=== PATIENT | female | born 2000 | race Caucasian/White ===

== ENCOUNTER 2019-05-24 16:58 | Emergency (ER) | payer MEDICAID ==
--- NOTE | 2019-05-24 17:53 | ER Document Report ---
HPI - HPI Time Seen by Provider: 05/24/19 17:17 Pain Level: 3 Context: Patient is a 19-year-old female with a history of asthma, sinusitis, and pneumonia who presents the emergency department with a cough and sinus congestion. She has had her symptoms for the past week. She denies any fever, but states that she does not feel well. - CONSTITUTIONAL Constitutional: DENIES: Fever, Chills - EENT EENT: REPORTS: Nasal Drainage-Purulent, Congestion. DENIES: Ear Pain - NEURO Neurology: DENIES: Headache - CARDIOVASCULAR Cardiovascular: DENIES: Chest pain - RESPIRATORY Respiratory: REPORTS: Coughing. DENIES: Trouble Breathing - GASTROINTESTINAL Gastrointestinal: DENIES: Abdominal Pain, Nausea, Patient vomiting - MUSCULOSKELETAL Musculoskeletal: DENIES: Extremity pain, Back Pain - DERM Skin Color: Normal Skin Problems: None Past Medical History - General Information source: Patient - Social History Smoking Status: Never Smoker Family History: Reviewed & Not Pertinent Patient has suicidal ideation: No Patient has homicidal ideation: No Pulmonary Medical History: Reports: Hx Asthma, Hx Pneumonia Vertical Provider Document - CONSTITUTIONAL Agree With Documented VS: Yes Exam Limitations: No Limitations General Appearance: No Apparent Distress - INFECTION CONTROL TRAVEL OUTSIDE OF THE [place] IN LAST 30 DAYS: No - HEENT HEENT: Atraumatic, Normocephalic, PERRLA. negative: Conjuctival Injection, Pharyngeal Exudate, Pharyngeal Tenderness, Pharyngeal Erythema, Tympanic Membrane Red, Tympanic Membrane Bulging - NECK Neck: Normal Inspection. negative: Lymphadenopathy-Left, Lymphadenopathy-Right - RESPIRATORY Respiratory: Breath Sounds Normal, No Respiratory Distress - CARDIOVASCULAR Cardiovascular: Regular Rate, Regular Rhythm Pulses: Normal: Radial - MUSCULOSKELETAL/EXTREMETIES Musculoskeletal/Extremeties: FROM - NEURO Level of Consciousness: Awake, Alert, Appropriate Motor/Sensory: No Motor Deficit, No Sensory Deficit - DERM Integumentary: Warm, Dry, No Rash Course - Re-evaluation Re-evalutation: 05/24/19 Patient's x-ray is negative for any acute finding. Patient will be treated with Augmentin for sinusitis. I have a very low suspicion for any life-threatening etiology at this time. She will follow-up with her primary care provider in [place], as she is visiting here. Follow-up precautions were given. Verbal discharge instructions were given to the patient. They verbalized understanding. They are stable for discharge. - Vital Signs Vital signs: Temp Pulse Resp BP Pulse Ox 98.3 F 105 H 17 131/66 H 98 05/24/19 17:36 05/24/19 17:36 05/24/19 17:36 05/24/19 17:36 05/24/19 17:36 Discharge - Discharge Clinical Impression: Sinusitis Qualifiers: Sinusitis location: frontal Chronicity: acute Recurrence: recurrent Qualified Code(s): J01.11 - Acute recurrent frontal sinusitis Condition: Stable Disposition: HOME, SELF-CARE Additional Instructions: You are seen today in the emergency department for sinus congestion and a cough. Your chest x-ray is normal. You are being placed on Augmentin to help with your symptoms. You are also being placed on steroids to help with inflammation. Please follow-up with your primary care provider this week. Prescriptions: Amoxicillin/Potassium Clav [Augmentin 875-125 Tablet] 1 tab PO BID #20 tab Prednisone [Deltasone 20 mg Tablet] 3 tab PO DAILY 5 Days tablet
--- NOTE | 2019-05-24 18:15 | RADIOLOGY REPORT (SQ) ---
EXAM DESCRIPTION: CHEST 2 VIEWS COMPLETED DATE/TIME: 05/24/2019 5:57 pm REASON FOR STUDY: cough; congestion; COMPARISON: None. EXAM PARAMETERS: NUMBER OF VIEWS: two views TECHNIQUE: Digital Frontal and Lateral radiographic views of the chest acquired. RADIATION DOSE: NA LIMITATIONS: none FINDINGS: LUNGS AND PLEURA: No opacities, masses or pneumothorax. No pleural effusion. MEDIASTINUM AND HILAR STRUCTURES: No masses or contour abnormalities. HEART AND VASCULAR STRUCTURES: Heart normal size. No evidence for failure. BONES: No acute findings. HARDWARE: None in the chest. OTHER: No other significant finding. IMPRESSION: NO ACUTE RADIOGRAPHIC FINDING IN THE CHEST. TECHNICAL DOCUMENTATION: JOB ID: [id number] 2010 [employer]- All Rights Reserved Reading location - IP/workstation name: [email or web address]
[2019-05-24 19:17] VITALS: BP 130/64
== END 2019-05-24 19:25 | disposition home or self-care (01) ==
LOC: ER 16:58
DX: J01.11 Acute recurrent frontal sinusitis (principal); R05 Cough; R09.81 Nasal congestion; R09.89 Other specified symptoms and signs involving the circulatory and respiratory systems; J45.909 Unspecified asthma, uncomplicated
CPT/HCPCS: 71046; 99283

== ENCOUNTER 2019-07-21 17:32 | Emergency (ER) | payer MEDICAID ==
--- NOTE | 2019-07-21 17:51 | ER Document Report ---
ED Medical Screen (RME) - General Chief Complaint: Lower Abdominal Pain Stated Complaint: ABDOMINAL PAIN Time Seen by Provider: 07/21/19 17:49 Mode of Arrival: Ambulatory Information source: Patient Notes: 19-year-old female with history of IBS presents emergency department with complaints of lower abdominal pain low back pain since this morning. Reports she is vomited twice today. Reports last bowel movement was this morning. Patient is still nauseated. No complaints of fever. Unsure of . I have greeted and performed a rapid initial assessment of this patient. A comprehensive ED assessment and evaluation of the patient, analysis of test results and completion of the medical decision making process will be conducted by additional ED providers. TRAVEL OUTSIDE OF THE U.S. IN LAST 30 DAYS: No - Related Data Allergies/Adverse Reactions: Anesthetics - Amide Type Allergy (Verified 07/21/19 17:42) latex Allergy (Verified 07/21/19 17:42) peanut Allergy (Verified 07/21/19 17:42) Home Medications: benadryl, claritin, ibuprofen, tylenol Past Medical History - Social History Chew tobacco use (# tins/day): No Frequency of alcohol use: Social Drug Abuse: None Pulmonary Medical History: Reports: Hx Asthma, Hx Pneumonia GI Medical History: Reports: Hx Gastroesophageal Reflux Disease Psychiatric Medical History: Reports: Hx Depression Physical Exam - Vital signs Vitals: Temp Pulse Resp BP Pulse Ox 99.2 F 116 H 16 116/58 L 98 07/21/19 17:40 07/21/19 17:40 07/21/19 17:40 07/21/19 17:40 07/21/19 17:40 Course - Vital Signs Vital signs: Temp Pulse Resp BP Pulse Ox 99.2 F 116 H 16 116/58 L 98 07/21/19 17:42 07/21/19 17:40 07/21/19 17:40 07/21/19 17:40 07/21/19 17:40
[2019-07-21] MEDS ORDERED: ONDANSETRON 4 MG TAB.RAPDIS PO ONE (17:52)
[2019-07-21 18:41] LABS: ABSOLUTE BASOPHILS # (AUTO) 0.1 10^3/uL (0.0-0.2); ABSOLUTE LYMPHOCYTES (AUTO) 1.7 10^3/uL (0.5-4.7); ABSOLUTE MONOCYTES (AUTO) 2.8 10^3/uL (0.1-1.4); ABSOLUTE NEUT (AUTO) 15.2 10^3/uL (1.7-8.2); BASOPHILS % (AUTO) 0.3 % (0-2); EOSINOPHILS % (AUTO) 0.1 % (0-6); HEMOGLOBIN 12.9 g/dL (12.0-15.5); LYMPHOCYTES % (AUTO) 8.5 % (13-45); MEAN CORPUSCULAR HEMOGLOBIN 27.3 pg (27.0-33.4); MEAN CORPUSCULAR HGB CONC 33.2 g/dL (32.0-36.0); MEAN CORPUSCULAR VOLUME 82 fl (80-97); MONOCYTES % (AUTO) 14.1 % (3-13); PLATELET COUNT 424 10^3/uL (150-450); RED BLOOD COUNT 4.74 10^6/uL (3.72-5.28); RED CELL DISTRIBUTION WIDTH 14.8 % (11.5-14.0); TOTAL CELLS COUNTED % (AUTO) 100 %; WHITE BLOOD COUNT 19.7 10^3/uL (4.0-10.5)
[2019-07-21 18:46] LABS: AMORPHOUS SEDIMENT,URINE TRACE /HPF; APPEARANCE,URINE SLIGHTLY-CLOUDY; BILIRUBIN,URINE NEGATIVE (NEGATIVE); COLOR,URINE YELLOW; GLUCOSE, URINE NEGATIVE (NEGATIVE); KETONES,URINE NEGATIVE (NEGATIVE); LEUKOCYTE ESTERASE,URINE LARGE (NEGATIVE); NITRITE,URINE NEGATIVE (NEGATIVE); PROTEIN,URINE 100 mg/dL (NEGATIVE); URINE SPECIFIC GRAVITY 1.015
[2019-07-21 18:59] LABS: ALBUMIN 3.8 g/dL (3.5-5.0); ALKALINE PHOSPHATASE 88 U/L (38-126); ANION GAP 6 (5-19); ASPARTATE AMINO TRANSFERASE 15 U/L (14-36); BILIRUBIN,TOTAL 0.6 mg/dL (0.2-1.3); BLOOD UREA NITROGEN 6 mg/dL (7-20); CALCIUM 9.1 mg/dL (8.4-10.2); CARBON DIOXIDE 26 mmol/L (22-30); CHLORIDE 103 mmol/L (98-107); GLUCOSE 98 mg/dL (75-110); TOTAL PROTEIN 6.7 g/dL (6.3-8.2)
[2019-07-21] MEDS ORDERED: CEFTRIAXONE 1 GM/D5W RTU 1 GM/50 ML RTUPB IV ONE (19:56)
[2019-07-21] MEDS ORDERED: KETOROLAC TROMETHAMINE INJ/PF 30 MG/1 ML SDV IV ONE (19:59)
[2019-07-21] MEDS ORDERED: ONDANSETRON HCL INJ/PF 4 MG/2 ML SDV IV ONE (19:59)
[2019-07-21] MEDS: NORMAL SALINE 1000 ML 1,000 ML IV PRN ×2 (20:15→20:49)
--- NOTE | 2019-07-21 20:15 | ER Document Report ---
ED General - General Chief Complaint: Lower Abdominal Pain Stated Complaint: ABDOMINAL PAIN Time Seen by Provider: 07/21/19 17:49 Mode of Arrival: Ambulatory TRAVEL OUTSIDE OF THE U.S. IN LAST 30 DAYS: No - HPI Notes: Patient is a 19-year-old female who presents to the emergency department for evaluation of lower back pain, urinary frequency and urgency, vomiting. She states her back started hurting her yesterday. This morning she noticed dysuria, hematuria. She said 2 episodes of nonbloody, nonbilious emesis. She states her back pain is an aching, rates it a 4 out of 5. It seems to be on the right side more than the left. No [place] fevers, but she was hot and cold at home. - Related Data Allergies/Adverse Reactions: Anesthetics - Amide Type Allergy (Verified 07/21/19 17:42) latex Allergy (Verified 07/21/19 17:42) peanut Allergy (Verified 07/21/19 17:42) Home Medications: benadryl, claritin, ibuprofen, tylenol Past Medical History - General Information source: Patient - Social History Smoking Status: Former Smoker Chew tobacco use (# tins/day): No Frequency of alcohol use: Social Drug Abuse: None Family History: Reviewed & Not Pertinent Patient has suicidal ideation: No Patient has homicidal ideation: No Pulmonary Medical History: Reports: Hx Asthma, Hx Pneumonia GI Medical History: Reports: Hx Gastroesophageal Reflux Disease Psychiatric Medical History: Reports: Hx Depression Review of Systems - Review of Systems Constitutional: See HPI Gastrointestinal: See HPI Genitourinary: See HPI Musculoskeletal: See HPI -: Yes All other systems reviewed and negative Physical Exam - Vital signs Vitals: Temp Pulse Resp BP Pulse Ox 99.2 F 116 H 16 116/58 L 98 07/21/19 17:40 07/21/19 17:40 07/21/19 17:40 07/21/19 17:40 07/21/19 17:40 - Notes Notes: Vital signs reviewed, please refer to chart. Head is normocephalic, atraumatic. Pupils equal round, reactive to light. Neck is supple without meningismus. Heart is regular rate and rhythm. Lungs are clear to auscultation bilaterally. Abdomen is soft, diffusely tender without rebound or guarding, normoactive bowel sounds throughout. Examination of the spine yields no obvious deformity. No midline tenderness or step-off. She has paraspinal musculature tenderness throughout the entire lumbar spine, right greater than left. No CVA tenderness noted. Extremities without cyanosis, clubbing. Posterior calves are nontender. Peripheral pulses are equal. Skin is warm and dry. Patient is awake, alert, neurological exam is nonfocal. Course - Re-evaluation Re-evalutation: 07/21/19 20:15 Patient presents to the emergency department for evaluation. She had laboratory investigations as ordered. She does have a high heart rate, high white count. We talked at length. The patient states she has an immune disorder which causes her to have a frequently high white count. At any rate, I did order urine cultures and blood cultures. She is given a dose of Rocephin. She is given medication for nausea and pain. At this point I do believe that it is reasonable to treat her as an outpatient. Patient is amenable to this plan. She is stable at this time, we will continue to monitor. 07/21/19 20:57 Patient feeling markedly improved after medications. I will send her home with a prescription for ceftriaxone. She understands the importance of returning if her symptoms worsen. She will be sent home with a to go pack of Zofran. She is to return to the ER with worsening. - Vital Signs Vital signs: Temp Pulse Resp BP Pulse Ox 99.2 F 116 H 16 116/58 L 98 07/21/19 17:42 07/21/19 17:40 07/21/19 17:40 07/21/19 17:40 07/21/19 17:40 - Laboratory Result Diagrams: 07/21/19 18:21 07/21/19 18:21 Laboratory results interpreted by me: 07/21/19 07/21/19 07/21/19 18:21 18:21 18:21 WBC 19.7 H RDW 14.8 H Lymph % (Auto) 8.5 L Graham % (Auto) 14.1 H Absolute Neuts (auto) 15.2 H Absolute Monos (auto) 2.8 H Sodium 135.4 L BUN 6 L Urine Protein 100 H Urine Blood MODERATE H Urine Urobilinogen 4.0 H Ur Leukocyte Esterase LARGE H Discharge - Discharge Clinical Impression: Urinary tract infection Qualifiers: Urinary tract infection type: site unspecified Hematuria presence: without hematuria Qualified Code(s): N39.0 - Urinary tract infection, site not specified Nausea and vomiting Qualifiers: Vomiting type: unspecified Vomiting Intractability: non-intractable Qualified Code(s): R11.2 - Nausea with vomiting, unspecified Condition: Stable Disposition: HOME, SELF-CARE Instructions: Urinary Tract Infection ([facility]), Cephalexin ([facility]) Additional Instructions: Stay hydrated with small, frequent sips of fluids. Zofran as needed for nausea. Take all the antibiotic as prescribed, starting tomorrow morning. If you develop fevers, vomiting that worsens, your symptoms do not improve in the next 24 to 48 hours, or you develop any other new or concerning symptoms, please return immediately to the ER for further evaluation. Otherwise, follow-up with primary care this week.
[2019-07-21] MEDS ORDERED: ONDANSETRON ODT 4 MG TAB (6 TAB/ER DISP) PO PRN (20:58)
[2019-07-21 21:32] VITALS: BP 114/61
== END 2019-07-21 21:33 | disposition home or self-care (01) ==
LOC: ER 17:32
DX: N39.0 Urinary tract infection, site not specified (principal); R11.2 Nausea with vomiting, unspecified; M54.5 Low back pain; R10.817 Generalized abdominal tenderness; J45.909 Unspecified asthma, uncomplicated; Z79.899 Other long term (current) drug therapy; Z79.1 Long term (current) use of non-steroidal anti-inflammatories (NSAID); Z87.891 Personal history of nicotine dependence; Z88.4 Allergy status to anesthetic agent; Z91.041 Radiographic dye allergy status; Z91.010 Allergy to peanuts
CPT/HCPCS: 99284; 96361; 96375; 96365; 36415; 87040; 84703; 85025; 80053; 81001; S0119; J1885; J2405; J7030; J0696

== ENCOUNTER 2019-08-14 16:53 | Emergency (ER) | payer MEDICAID ==
--- NOTE | 2019-08-14 17:14 | ER Document Report ---
ED Medical Screen (RME) - General Chief Complaint: Palpitations Stated Complaint: PALPITATIONS Time Seen by Provider: 08/14/19 17:08 Mode of Arrival: Ambulatory Information source: Patient Notes: 19-year-old female with history of auto immune deficiency disorder and palpitations presents to the emergency department with complaints of heart palpitations and chest pain with the palpitations. She reports her palpitations started when she was just laying there prior to arrival. Denies other symptoms such as nausea vomiting fever diarrhea. Denies drinking energy drinks. Denies cold medications. Denies smoking drinking drugs. Reports father history with cardiac disease. Patient is visiting from [place]. She reports she has had pneumonia 23 times. Patient denies symptoms at this time. I have greeted and performed a rapid initial assessment of this patient. A comprehensive ED assessment and evaluation of the patient, analysis of test results and completion of the medical decision making process will be conducted by additional ED providers. TRAVEL OUTSIDE OF THE U.S[place] IN LAST 30 DAYS: No - Related Data Allergies/Adverse Reactions: Anesthetics - Amide Type Allergy (Verified 07/21/19 17:42) latex Allergy (Verified 07/21/19 17:42) peanut Allergy (Verified 07/21/19 17:42) Home Medications: Benadryl. Claritin Past Medical History - Social History Frequency of alcohol use: None Drug Abuse: None Pulmonary Medical History: Reports: Hx Asthma, Hx Pneumonia GI Medical History: Reports: Hx Gastroesophageal Reflux Disease Psychiatric Medical History: Reports: Hx Depression Physical Exam - Vital signs Vitals: Temp Pulse Resp BP Pulse Ox 97.8 F 99 18 119/71 98 08/14/19 17:02 08/14/19 17:02 08/14/19 17:02 08/14/19 17:02 08/14/19 17:02 Course - Vital Signs Vital signs: Temp Pulse Resp BP Pulse Ox 97.8 F 99 18 119/71 98 08/14/19 17:06 08/14/19 17:02 08/14/19 17:02 08/14/19 17:02 08/14/19 17:02
--- NOTE | 2019-08-14 17:49 | RADIOLOGY REPORT (SQ) ---
EXAM DESCRIPTION: CHEST SINGLE VIEW IMAGES COMPLETED DATE/TIME: 08/14/2019 5:36 pm REASON FOR STUDY: chest palpitations COMPARISON: 05/24/2019 EXAM PARAMETERS: NUMBER OF VIEWS: One view. TECHNIQUE: Single frontal radiographic view of the chest acquired. RADIATION DOSE: NA LIMITATIONS: None. FINDINGS: LUNGS AND PLEURA: No opacities, masses or pneumothorax. No pleural effusion. MEDIASTINUM AND HILAR STRUCTURES: No masses. Contour normal. HEART AND VASCULAR STRUCTURES: Heart normal in size. Normal vasculature. BONES: No acute findings. HARDWARE: None in the chest. OTHER: No other significant finding. IMPRESSION: NO ACUTE RADIOGRAPHIC FINDING IN THE CHEST. TECHNICAL DOCUMENTATION: JOB ID: [id number] 2010 [employer]- All Rights Reserved Reading location - IP/workstation name: [email or web address]
[2019-08-14 18:11] LABS: ABSOLUTE BASOPHILS # (AUTO) 0.1 10^3/uL (0.0-0.2); ABSOLUTE EOSINOPHILS # (AUTO) 0.8 10^3/uL (0.0-0.6); ABSOLUTE LYMPHOCYTES (AUTO) 2.7 10^3/uL (0.5-4.7); ABSOLUTE MONOCYTES (AUTO) 0.9 10^3/uL (0.1-1.4); ABSOLUTE NEUT (AUTO) 9.8 10^3/uL (1.7-8.2); BASOPHILS % (AUTO) 0.7 % (0-2); EOSINOPHILS % (AUTO) 5.7 % (0-6); HEMATOCRIT 39.7 % (36.0-47.0); LYMPHOCYTES % (AUTO) 18.8 % (13-45); MEAN CORPUSCULAR HEMOGLOBIN 26.8 pg (27.0-33.4); MEAN CORPUSCULAR HGB CONC 32.8 g/dL (32.0-36.0); MEAN CORPUSCULAR VOLUME 82 fl (80-97); MONOCYTES % (AUTO) 6.5 % (3-13); PLATELET COUNT 504 10^3/uL (150-450); RED BLOOD COUNT 4.86 10^6/uL (3.72-5.28); RED CELL DISTRIBUTION WIDTH 14.9 % (11.5-14.0); SEGMENTED NEUTROPHILS % (AUTO) 68.3 % (42-78); TOTAL CELLS COUNTED % (AUTO) 100 %; WHITE BLOOD COUNT 14.3 10^3/uL (4.0-10.5)
[2019-08-14 18:25] LABS: APPEARANCE,URINE SLIGHTLY-CLOUDY; BILIRUBIN,URINE NEGATIVE (NEGATIVE); COLOR,URINE YELLOW; GLUCOSE, URINE NEGATIVE (NEGATIVE); KETONES,URINE NEGATIVE (NEGATIVE); LEUKOCYTE ESTERASE,URINE NEGATIVE (NEGATIVE); NITRITE,URINE NEGATIVE (NEGATIVE); PROTEIN,URINE NEGATIVE (NEGATIVE); URINE SPECIFIC GRAVITY 1.025; UROBILINOGEN,URINE NEGATIVE mg/dL (<2.0)
[2019-08-14 18:31] LABS: URINE AMPHETAMINES SCREEN NEGATIVE; URINE BARBITURATES SCREEN NEGATIVE; URINE BENZODIAZEPINES SCREEN NEGATIVE; URINE COCAINE SCREEN NEGATIVE; URINE MARIJUANA (THC) SCREEN NEGATIVE; URINE METHADONE SCREEN NEGATIVE; URINE PHENCYCLIDINE SCREEN NEGATIVE
[2019-08-14 18:32] LABS: ALBUMIN 4.2 g/dL (3.5-5.0); ALKALINE PHOSPHATASE 79 U/L (38-126); ANION GAP 7 (5-19); ASPARTATE AMINO TRANSFERASE 17 U/L (14-36); BILIRUBIN,TOTAL 0.3 mg/dL (0.2-1.3); BLOOD UREA NITROGEN 10 mg/dL (7-20); CALCIUM 9.8 mg/dL (8.4-10.2); CARBON DIOXIDE 28 mmol/L (22-30); CHLORIDE 103 mmol/L (98-107); GLUCOSE 91 mg/dL (75-110); POTASSIUM 4.4 mmol/L (3.6-5.0); TOTAL PROTEIN 7.2 g/dL (6.3-8.2)
--- NOTE | 2019-08-14 18:49 | EKG REPORT ---
SEVERITY:- NORMAL ECG - SINUS RHYTHM : Confirmed by: Leslie Raphael MD 14-Aug-2019 18:48:29
[2019-08-14 21:45] VITALS: BP 119/68
--- NOTE | 2019-08-15 05:42 | ER Document Report ---
Entered by BARBARA PATEL SCRIBE 08/14/19 2100 Acting as scribe for:LIYA BLOCK IV, MD ED General - General Chief Complaint: Palpitations Stated Complaint: PALPITATIONS Time Seen by Provider: 08/14/19 17:08 Primary Care Provider: ELO ROMERO MD [HONORARY] - 08/18/19 Mode of Arrival: Ambulatory Information source: Patient Notes: This 19 year old female patient with a history of an autoimmune disorder presents to the ED today with complaints of palpitations and chest pain that started earlier this afternoon while at rest. Patient describes the chest pain as a "fluttery" sensation that lasted approximately x3 hours intermittently. She states that she has had palpitations once in the past only after drinking an energy drink or using her albuterol inhaler. She denies caffeine intake or use of albuterol today. She reports that she recently stopped taking antihistamines for her chronic sinusitis. Denies fever, chills or any recent travel. She states that she feels better at this time, denies any chest pain. TRAVEL OUTSIDE OF THE [place] IN LAST 30 DAYS: No - Related Data Allergies/Adverse Reactions: Anesthetics - Amide Type Allergy (Verified 07/21/19 17:42) latex Allergy (Verified 07/21/19 17:42) peanut Allergy (Verified 07/21/19 17:42) Home Medications: Benadryl. Claritin Past Medical History - General Information source: Patient - Social History Smoking Status: Never Smoker Cigarette use (# per day): No Chew tobacco use (# tins/day): No Smoking Education Provided: No Frequency of alcohol use: None Drug Abuse: None Family History: Reviewed & Not Pertinent, CAD Patient has suicidal ideation: No Patient has homicidal ideation: No Pulmonary Medical History: Reports: Hx Asthma, Hx Pneumonia GI Medical History: Reports: Hx Gastroesophageal Reflux Disease Psychiatric Medical History: Reports: Hx Depression Review of Systems - Review of Systems Constitutional: See HPI. denies: Chills, Fever EENT: No symptoms reported Cardiovascular: See HPI, Chest pain, Palpitations Respiratory: No symptoms reported Gastrointestinal: No symptoms reported Genitourinary: No symptoms reported Female Genitourinary: No symptoms reported Musculoskeletal: No symptoms reported Skin: No symptoms reported Hematologic/Lymphatic: No symptoms reported Neurological/Psychological: No symptoms reported -: Yes All other systems reviewed and negative Physical Exam - Vital signs Vitals: Temp Pulse Resp BP Pulse Ox 97.8 F 99 18 119/71 98 08/14/19 17:02 08/14/19 17:02 08/14/19 17:02 08/14/19 17:02 08/14/19 17:02 Interpretation: Normal - General General appearance: Appears well, Alert In distress: None - HEENT Head: Normocephalic, Atraumatic Eyes: Normal Pupils: PERRL - Respiratory Respiratory status: No respiratory distress Chest status: Nontender Breath sounds: Normal Chest palpation: Normal - Cardiovascular Rhythm: Regular Heart sounds: Normal auscultation Murmur: No Friction rub: No Gallop: None auscultated - Abdominal Inspection: Normal Distension: No distension Bowel sounds: Normal Tenderness: Nontender - Abdomen soft Organomegaly: No organomegaly - Back Back: Normal, Nontender - Extremities General upper extremity: Normal inspection General lower extremity: Normal inspection - Neurological Neuro grossly intact: Yes Orientation: AAOx4 - Psychological Associated symptoms: Normal affect, Normal mood - Skin Skin Temperature: Warm Skin Moisture: Dry Skin Color: Normal Course - Re-evaluation Re-evalutation: 08/14/19 21:29 Results of ED MSE discussed with patient. Patient remains calm and still affirms that she is not having any chest pain or any other difficulty at this time. 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 All questions were answered prior to discharge. Emergency signs and symptoms, reasons to return to the emergency department discussed with patient. - Vital Signs Vital signs: Temp Pulse Resp BP Pulse Ox 97.8 F 99 18 119/71 98 08/14/19 17:06 08/14/19 17:02 08/14/19 17:02 08/14/19 17:02 08/14/19 17:02 - Laboratory Result Diagrams: 08/14/19 17:58 08/14/19 17:58 Laboratory results interpreted by me: 08/14/19 08/14/19 17:58 17:58 WBC 14.3 H MCH 26.8 L RDW 14.9 H Plt Count 504 H Absolute Neuts (auto) 9.8 H Absolute Eos (auto) 0.8 H Urine Blood SMALL H - EKG Interpretation by Me Additional EKG results interpreted by me: 08/14/19 21:31 EKG obtained on 08/14/2019 at 1658 hrs. was interpreted by this MD. Findings: Normal sinus rhythm, rate 95, normal axis, P waves preceding QRS complexes, QRS complexes appear narrow, there are no obvious patterns of ST segment elevation or depression seen to suggest acute myocardial ischemia or infarction. Impr ession: Normal sinus rhythm with nonspecific ST segments. Discharge - Discharge Clinical Impression: Palpitations Condition: Good Disposition: HOME, SELF-CARE Instructions: Palpitations (Irregular or Rapid Heartrate) ([facility]) Additional Instructions: Return to the Emergency Department without delay if any worse. HOME CARE INSTRUCTIONS & INFORMATION: Thank you for choosing us for your medical needs. We hope you're satisfied with the care you received. After you leave, you must properly care for your problem and, at the same time, observe its progress. Any condition can change. Some illnesses can change rapidly over hours or days. If your condition worsens, return to the Emergency Department or see your physician promptly. ABOUT YOUR X-RAYS AND EKG'S: If you had an EKG or X-rays taken, they have been read by the Emergency Physician. The X-rays and EKG's will also be read by a Radiologist or [employer] within 24 hours. If discrepancies are noted, you will be notified by telephone. Please be certain the ED has a correct telephone number & address where you can be reached. Also, realize that some fractures or abnormalities do not show up on initial X-rays. If your symptoms continue, see your physician. ABOUT YOUR LABORATORY TEST: If you had laboratory tests, the results have been reviewed by the Emergency Physician. Some test results (for example cultures) may not be available for several days. You will be contacted if any test result shows you need additional treatment. Please be certain the ED has a correct telephone number and address where you can be reached. ABOUT YOUR MEDICATIONS: You will receive instructions on how to take your medicine on the prescription label you receive. Additional information may be provided by the Pharmacy. If you have questions afterwards, call the ED for clarification or further instructions. Some prescribed medications may cause drowsiness. Do not perform tasks such as driving a car or operating machinery without consulting your Pharmacist. If you feel you need a refill of pain medication, your condition will need re-evaluation. Please do not call for a refill of any medication. ABOUT YOUR SIGNATURE: Signature of this document acknowledges to followin. Understanding that you received emergency treatment and that you may be r eleased before al medical problems are known or treated. Please be certain the ED has a correct phone number & address where you can be reached. 2. Acknowledgement that you will arrange for follow-up care as recommended. 3. Authorization for the Emergency Physician to provide information to your follow-up Physician in order to maximize your care. AT ANY TIME, IF YOUR SYMPTOMS CHANGE SIGNIFICANTLY OR WORSEN OR YOU DEVELOP NEW SYMPTOMS, RETURN TO THE EMERGENCY DEPARTMENT IMMEDIATELY FOR RE-EVALUATION. OUR GOAL IS TO PROVIDE EXCELLENT MEDICAL CARE! WE HOPE THAT WE HAVE MET YOUR EXPECTATIONS DURING YOUR EMERGENCY DEPARTMENT VISIT AND THAT YOU FEEL YOU HAVE RECEIVED EXCELLENT CARE! Referrals: ELO ROMERO MD [HONORARY] - 08/18/19 I personally performed the services described in the documentation, reviewed and edited the documentation which was dictated to the scribe in my presence, and it accurately records my words and actions.
== END 2019-08-14 21:45 | disposition home or self-care (01) ==
LOC: ER 16:53
DX: R00.2 Palpitations (principal); R07.9 Chest pain, unspecified; Z79.51 Long term (current) use of inhaled steroids; Z79.899 Other long term (current) drug therapy; Z88.8 Allergy status to other drugs, medicaments and biological substances; J45.909 Unspecified asthma, uncomplicated
CPT/HCPCS: 36415; 71045; 80053; 80307; 81001; 81025; 85025; 93005; 93010; 99285

== ENCOUNTER 2019-09-23 11:02 | Emergency (ER) | payer MEDICAID ==
[2019-09-23 13:06] LABS: ABSOLUTE EOSINOPHILS # (AUTO) 0.7 10^3/uL (0.0-0.6); ABSOLUTE LYMPHOCYTES (AUTO) 2.1 10^3/uL (0.5-4.7); ABSOLUTE MONOCYTES (AUTO) 0.9 10^3/uL (0.1-1.4); ABSOLUTE NEUT (AUTO) 11.1 10^3/uL (1.7-8.2); BASOPHILS % (AUTO) 0.2 % (0-2); EOSINOPHILS % (AUTO) 4.7 % (0-6); HEMATOCRIT 39.8 % (36.0-47.0); HEMOGLOBIN 13.1 g/dL (12.0-15.5); LYMPHOCYTES % (AUTO) 13.9 % (13-45); MEAN CORPUSCULAR HEMOGLOBIN 26.7 pg (27.0-33.4); MEAN CORPUSCULAR HGB CONC 32.9 g/dL (32.0-36.0); MEAN CORPUSCULAR VOLUME 81 fl (80-97); MONOCYTES % (AUTO) 6.4 % (3-13); PLATELET COUNT 462 10^3/uL (150-450); RED BLOOD COUNT 4.92 10^6/uL (3.72-5.28); RED CELL DISTRIBUTION WIDTH 15.3 % (11.5-14.0); SEGMENTED NEUTROPHILS % (AUTO) 74.8 % (42-78); TOTAL CELLS COUNTED % (AUTO) 100 %; WHITE BLOOD COUNT 14.9 10^3/uL (4.0-10.5)
[2019-09-23 13:23] LABS: ALKALINE PHOSPHATASE 81 U/L (38-126); ASPARTATE AMINO TRANSFERASE 20 U/L (14-36); BILIRUBIN,TOTAL 0.2 mg/dL (0.2-1.3); BLOOD UREA NITROGEN 10 mg/dL (7-20); CALCIUM 9.4 mg/dL (8.4-10.2); CHLORIDE 104 mmol/L (98-107); GLUCOSE 90 mg/dL (75-110); POTASSIUM 4.9 mmol/L (3.6-5.0)
[2019-09-23 13:28] LABS: ANION GAP 5 (5-19); CARBON DIOXIDE 28 mmol/L (22-30)
[2019-09-23 13:37] LABS: APPEARANCE,URINE CLEAR; BILIRUBIN,URINE NEGATIVE (NEGATIVE); COLOR,URINE YELLOW; GLUCOSE, URINE NEGATIVE (NEGATIVE); KETONES,URINE NEGATIVE (NEGATIVE); PROTEIN,URINE NEGATIVE (NEGATIVE); URINE SPECIFIC GRAVITY 1.019; UROBILINOGEN,URINE NEGATIVE mg/dL (<2.0)
--- NOTE | 2019-09-23 14:02 | RADIOLOGY REPORT (SQ) ---
EXAM DESCRIPTION: CT ABD/PELVIS NO ORAL OR IV IMAGES COMPLETED DATE/TIME: 09/23/2019 1:50 pm REASON FOR STUDY: rlq pain COMPARISON: None. TECHNIQUE: CT scan of the abdomen and pelvis performed without intravenous or oral contrast. Images reviewed with lung, soft tissue, and bone windows. Reconstructed coronal and sagittal MPR images revi ewed. All images stored on PACS. All CT scanners at this facility use dose modulation, iterative reconstruction, and/or weight based d osing when appropriate to reduce radiation dose to as low as reasonably achievable (ALARA). [facility]: Dose Right [facility]: CareDose [facility]: Dose Right [facility]: Teradose 4D [facility]: SocialGuide RADIATION DOSE: mGy. LIMITATIONS: None. FINDINGS: LOWER CHEST: No significant findings. No nodules or infiltrates. NON-CONTRASTED LIVER, SPLEEN, ADRENALS: Evaluation limited by lack of IV contrast. No identified sign ificant masses. PANCREAS: No masses. No peripancreatic inflammatory changes. GALLBLADDER: No identified stones by CT criteria. No inflammatory changes to suggest cholecystitis. RIGHT KIDNEY AND URETER: No solid masses. No significant calcification. No hydronephrosis or hydroure ter. LEFT KIDNEY AND URETER: Several punctate nonobstructing tiny stones. AORTA AND RETROPERITONEUM: No aneurysm. No retroperitoneal masses or adenopathy. BOWEL AND PERITONEAL CAVITY: No obvious masses or inflammatory changes. No free fluid. APPENDIX: Normal. PELVIS, BLADDER, AND ABDOMINAL WALL:No abnormal masses. No free fluid. Bladder normal. BONES: No significant findings. OTHER: No other significant finding. IMPRESSION: 1. No acute findings. 2. Nonobstructive left nephrolithiasis. TECHNICAL DOCUMENTATION: JOB ID: [id number] Quality ID # [id number]: Final reports with documentation of one or more dose reduction techniques (e.g., Au tomated exposure control, adjustment of the mA and/or kV according to patient size, use of iterative reconstruction technique) 2010 [employer]- All Rights Reserved Reading location - IP/workstation name: [employer] [email or web address]
[2019-09-23] MEDS ORDERED: CEFTRIAXONE INJ 250 MG VIAL IM ONE (14:26)
--- NOTE | 2019-09-23 14:26 | ER Document Report ---
ED General - General Chief Complaint: Nausea/Vomiting Stated Complaint: VOMITING Time Seen by Provider: 09/23/19 11:50 Mode of Arrival: Ambulatory Information source: Patient TRAVEL OUTSIDE OF THE [place] IN LAST 30 DAYS: No - HPI Notes: Patient presents with right lower quadrant and right flank pain. She states this started yesterday. She has had some nausea and vomiting as well. She states the pain is been relatively constant. Is worse with movement and better with rest. It does radiate from the right flank into the right lower quadrant. It is been sharp and crampy in nature. Moderate in intensity. No vaginal discharge or bleeding. She has had some dysuria. She denies being . - Related Data Allergies/Adverse Reactions: Anesthetics - Amide Type Allergy (Verified 07/21/19 17:42) latex Allergy (Verified 07/21/19 17:42) peanut Allergy (Verified 07/21/19 17:42) Home Medications: claritin, albuterol, vitamins, atrovent, dulera Past Medical History - General Information source: Patient - Social History Smoking Status: Never Smoker Chew tobacco use (# tins/day): No Frequency of alcohol use: None Drug Abuse: None Family History: Reviewed & Not Pertinent, CAD Pulmonary Medical History: Reports: Hx Asthma, Hx Pneumonia GI Medical History: Reports: Hx Gastroesophageal Reflux Disease Psychiatric Medical History: Reports: Hx Depression Review of Systems - Review of Systems Constitutional: Malaise. denies: Chills, Fever Respiratory: denies: Cough, Short of breath Gastrointestinal: Abdominal pain, Vomiting. denies: Diarrhea -: Yes All other systems reviewed and negative Physical Exam - Vital signs Vitals: Temp Pulse Resp BP Pulse Ox 98.2 F 74 16 131/95 H 99 09/23/19 12:12 09/23/19 12:12 09/23/19 12:12 09/23/19 12:12 09/23/19 12:12 Interpretation: Normal - General General appearance: Appears well, Alert - HEENT Head: Normocephalic, Atraumatic Eyes: Normal Pupils: PERRL - Respiratory Respiratory status: No respiratory distress Chest status: Nontender Breath sounds: Normal Chest palpation: Normal - Cardiovascular Rhythm: Regular Heart sounds: Normal auscultation Murmur: No - Abdominal Inspection: Normal Distension: No distension Bowel sounds: Normal Tenderness: Tender - Patient has some mild tenderness palpation of the right upper and lower quadrants. No rebound or guarding. Organomegaly: No organomegaly - Back Back: Normal, Nontender - Extremities General upper extremity: Normal inspection, Nontender, Normal color, Normal ROM, Normal temperature General lower extremity: Normal inspection, Nontender, Normal color, Normal ROM, Normal temperature, Normal weight bearing. No: Trisha's sign - Neurological Neuro grossly intact: Yes Cognition: Normal Orientation: AAOx4 [place] Coma Scale Eye Opening: Spontaneous [place] Coma Scale Verbal: Oriented [place] Coma Scale Motor: Obeys Commands [place] Coma Scale Total: 15 Speech: Normal Motor strength normal: LUE, RUE, LLE, RLE Sensory: Normal - Psychological Associated symptoms: Normal affect, Normal mood - Skin Skin Temperature: Warm Skin Moisture: Dry Skin Color: Normal Course - Re-evaluation Re-evalutation: 09/23/19 14:22 Patient presents with right flank pain with an equivocal urine. She does have an elevated white blood cell count but no other acute findings on CT. She does not have a surgical exam. She does have stable vitals. I am going to treat the patient as a urinary tract infection at this time and have her follow-up with her primary care physician. Her clinical picture does not seem consistent with an STD and she states that she is not concerned about this. - Vital Signs Vital signs: Temp Pulse Resp BP Pulse Ox 98.2 F 74 16 131/95 H 99 09/23/19 12:12 09/23/19 12:12 09/23/19 12:12 09/23/19 12:12 09/23/19 12:12 - Laboratory Result Diagrams: 09/23/19 12:52 09/23/19 12:52 Laboratory results interpreted by me: 09/23/19 09/23/19 09/23/19 11:48 12:52 12:52 WBC 14.9 H MCH 26.7 L RDW 15.3 H Plt Count 462 H Absolute Neuts (auto) 11.1 H Absolute Eos (auto) 0.7 H Sodium 136.8 L Urine Blood SMALL H Leukocyte Esterase Rfl TRACE H - Diagnostic Test Radiology reviewed: Image reviewed, Reports reviewed Discharge - Discharge Clinical Impression: UTI (urinary tract infection) Qualifiers: Urinary tract infection type: site unspecified Hematuria presence: without hematuria Qualified Code(s): N39.0 - Urinary tract infection, site not specified Condition: Stable Disposition: HOME, SELF-CARE Instructions: Urinary Tract Infection ([facility]) Additional Instructions: Please follow-up with your primary care physician as soon as possible Prescriptions: Doxycycline Hyclate [Morgidox] 100 mg PO BID 10 Days #20 capsule Hydrocodone/Acetaminophen [[place] 5-325 mg Tablet] 1 tab PO Q6 PRN 3 Days #12 tablet PRN Reason: Forms: Return to Work Referrals: JESSICA HURTADO MD [ACTIVE STAFF] - Follow up in 3-5 days
[2019-09-23] MEDS ORDERED: CEFTRIAXONE INJ 250 MG VIAL IV ONE (14:30)
[2019-09-23] MEDS ORDERED: ONDANSETRON HCL INJ/PF 4 MG/2 ML SDV IV ONE (14:30)
[2019-09-23] MEDS ORDERED: KETOROLAC TROMETHAMINE INJ/PF 30 MG/1 ML SDV IV ONE (14:30)
[2019-09-23 15:44] VITALS: BP 105/67
== END 2019-09-23 15:55 | disposition home or self-care (01) ==
LOC: ER 11:02
DX: N39.0 Urinary tract infection, site not specified (principal); N20.0 Calculus of kidney; R10.31 Right lower quadrant pain; R10.9 Unspecified abdominal pain; R10.811 Right upper quadrant abdominal tenderness; R10.813 Right lower quadrant abdominal tenderness; R11.2 Nausea with vomiting, unspecified; R30.0 Dysuria; R53.81 Other malaise; J45.909 Unspecified asthma, uncomplicated; Z79.899 Other long term (current) drug therapy; Z79.51 Long term (current) use of inhaled steroids; Z88.4 Allergy status to anesthetic agent; Z91.040 Latex allergy status; Z91.010 Allergy to peanuts
CPT/HCPCS: 99284; 96375; 96365; 36415; 85025; 81025; 80053; 81001; 74176; J1885; J2405; J0696

== ENCOUNTER 2019-10-16 18:41 | Emergency (ER) | payer MEDICAID ==
--- NOTE | 2019-10-16 18:55 | ER Document Report ---
ED Medical Screen (RME) - General Chief Complaint: Vag Bleeding, +preg <12wks Stated Complaint: VAGINAL BLEEDING,ABDOMINAL PAIN Time Seen by Provider: 10/16/19 18:49 Mode of Arrival: Ambulatory Information source: Patient Notes: 19-year-old female presented to ED for complaint of vaginal bleeding started about an hour ago soaking a panty liner. She states she took a bunch of home tests and they were all positive. She states her last menstrual period was August 30. She states she has some cramping which are level 2 out of 5. She is 2 para 1. She does not smoke she was drinking alcohol before she started having positive home test. And she states she does not use any drugs. She is alert oriented respirations regular nonlabored speaking in full sentences walks with a even steady gait. I have greeted and performed a rapid initial assessment of this patient. A comprehensive ED assessment and evaluation of the patient, analysis of test results and completion of medical decision making process will be conducted by an additional ED providers. TRAVEL OUTSIDE OF THE [place] IN LAST 30 DAYS: No - Related Data Allergies/Adverse Reactions: Anesthetics - Amide Type Allergy (Verified 10/16/19 18:50) latex Allergy (Verified 10/16/19 18:50) peanut Allergy (Verified 10/16/19 18:50) Past Medical History Pulmonary Medical History: Reports: Hx Asthma, Hx Pneumonia GI Medical History: Reports: Hx Gastroesophageal Reflux Disease Psychiatric Medical History: Reports: Hx Depression Physical Exam - Vital signs Vitals: Temp Pulse Resp BP Pulse Ox 98.4 F 105 H 18 120/72 100 10/16/19 18:46 10/16/19 18:46 10/16/19 18:46 10/16/19 18:46 10/16/19 18:46 Course - Vital Signs Vital signs: Temp Pulse Resp BP Pulse Ox 98.4 F 105 H 18 120/72 100 10/16/19 18:46 10/16/19 18:46 10/16/19 18:46 10/16/19 18:46 10/16/19 18:46
[2019-10-16 19:35] LABS: ABSOLUTE BASOPHILS # (AUTO) 0.1 10^3/uL (0.0-0.2); ABSOLUTE EOSINOPHILS # (AUTO) 0.7 10^3/uL (0.0-0.6); ABSOLUTE LYMPHOCYTES (AUTO) 2.9 10^3/uL (0.5-4.7); ABSOLUTE MONOCYTES (AUTO) 0.9 10^3/uL (0.1-1.4); ABSOLUTE NEUT (AUTO) 12.1 10^3/uL (1.7-8.2); BASOPHILS % (AUTO) 0.4 % (0-2); EOSINOPHILS % (AUTO) 4.4 % (0-6); HEMATOCRIT 39.2 % (36.0-47.0); HEMOGLOBIN 12.7 g/dL (12.0-15.5); LYMPHOCYTES % (AUTO) 17.2 % (13-45); MEAN CORPUSCULAR HEMOGLOBIN 26.6 pg (27.0-33.4); MEAN CORPUSCULAR HGB CONC 32.4 g/dL (32.0-36.0); MEAN CORPUSCULAR VOLUME 82 fl (80-97); MONOCYTES % (AUTO) 5.6 % (3-13); PLATELET COUNT 538 10^3/uL (150-450); RED BLOOD COUNT 4.78 10^6/uL (3.72-5.28); RED CELL DISTRIBUTION WIDTH 15.8 % (11.5-14.0); SEGMENTED NEUTROPHILS % (AUTO) 72.4 % (42-78); TOTAL CELLS COUNTED % (AUTO) 100 %; WHITE BLOOD COUNT 16.8 10^3/uL (4.0-10.5)
[2019-10-16 19:47] LABS: APPEARANCE,URINE SLIGHTLY-CLOUDY; BILIRUBIN,URINE NEGATIVE (NEGATIVE); COLOR,URINE YELLOW; GLUCOSE, URINE NEGATIVE (NEGATIVE); KETONES,URINE NEGATIVE (NEGATIVE); LEUKOCYTE ESTERASE,URINE TRACE (NEGATIVE); NITRITE,URINE NEGATIVE (NEGATIVE); PROTEIN,URINE 30 mg/dL (NEGATIVE); URINE SPECIFIC GRAVITY 1.029
[2019-10-16 19:58] LABS: ALBUMIN 3.8 g/dL (3.5-5.0); ALKALINE PHOSPHATASE 74 U/L (38-126); ANION GAP 5 (5-19); ASPARTATE AMINO TRANSFERASE 18 U/L (14-36); BILIRUBIN,TOTAL 0.2 mg/dL (0.2-1.3); BLOOD UREA NITROGEN 6 mg/dL (7-20); CALCIUM 9.1 mg/dL (8.4-10.2); CARBON DIOXIDE 26 mmol/L (22-30); CHLORIDE 106 mmol/L (98-107); GLUCOSE 102 mg/dL (75-110); POTASSIUM 4.5 mmol/L (3.6-5.0); TOTAL PROTEIN 6.6 g/dL (6.3-8.2)
--- NOTE | 2019-10-16 20:48 | ER Document Report ---
ED GI/ - General Chief Complaint: Vag Bleeding, +preg <12wks Stated Complaint: VAGINAL BLEEDING,ABDOMINAL PAIN Time Seen by Provider: 10/16/19 18:49 Mode of Arrival: Ambulatory Notes: CHIEF COMPLAINT: Vaginal bleeding and HPI: 19-year-old female presenting for evaluation of vaginal bleeding and . States she had an episode of bleeding tonight that was heavier than a menstrual cycle but which she states has stopped now. States she had some cramping at that time no cramping currently. This is the patient's second . ROS: See HPI - all other systems were reviewed and are otherwise negative Constitutional: no fever or recent illness Eyes: no drainage, no blurred vision ENT: no runny nose, no sore throat Cardiovascular: no chest pain Resp: no SOB, no cough GI: no vomiting, no diarrhea : no dysuria, no vaginal discharge, positive vaginal bleeding Integumentary: no rash Allergy: no hives Musculoskeletal: no extremity pain or swelling Neurological: no numbness/tingling, no weakness MEDICATIONS: I agree with the patient medications as charted by the RN. ALLERGIES: I agree with the allergies as charted by the RN. PAST MEDICAL HISTORY/PAST SURGICAL HISTORY: Reviewed and agree as charted by RN. SOCIAL HISTORY: Reviewed and agree as charted by RN. FAMILY HISTORY: No significant familial comorbid conditions directly related to patient complaint EXAM: Reviewed vital signs as charted by RN. CONSTITUTIONAL: Alert and oriented and responds appropriately to questions. Well-appearing; well-nourished HEAD: Normocephalic; atraumatic EYES: Conjunctivae clear, sclerae non-icteric ENT: normal nose; no rhinorrhea; moist mucous membranes; pharynx without lesions noted NECK: Supple without meningismus CARD: Capillary refill less than 3 seconds; symmetric distal pulses RESP: Normal chest excursion without splinting or tachypnea ABD/GI: Obese, normal bowel sounds; non-distended; soft, non-tender, no rebound, no guarding; no palpable organomegaly or masses : Female nurse seo specialist present. External genitalia normal. No skin lesions noted. Pelvic Exam: No active bleeding. No purulent discharge. Cervix appears normal. No CMT. cervical loss is closed. No lesions or masses. Uterus normal size and non tender. Right/Left adnexa normal size and non tender. BACK: The back appears normal and is non-tender to palpation, there is no CVA tenderness EXT: Normal ROM in all joints; non-tender to palpation; no cyanosis, no effusions, no edema SKIN: Normal color for age and race; warm; dry; good turgor; no acute lesions noted NEURO: Moves all extremities equally; Motor and sensory function intact PSYCH: The patient's mood and manner are appropriate. Grooming and personal hygiene are appropriate. MDM: 19-year-old female presenting for vaginal bleeding tonight in a setting of . She does have a positive beta hCG just slightly greater than 1300. There was absolutely no blood old or new in the vaginal vault on her exam. She is early on in does not have any complaints of pain unilaterally that would suggest an ectopic at this time. No indication at this time for ultrasound imaging as it would be unlikely given her beta-hCG level to visualize anything in the uterus. This was discussed at length with the patient. Will have patient follow-up with [facility] for repeat beta hCG in 3 to 4 days. Bleeding and ectopic precautions discussed TRAVEL OUTSIDE OF THE [place] IN LAST 30 DAYS: No - Related Data Allergies/Adverse Reactions: Anesthetics - Amide Type Allergy (Verified 10/16/19 18:50) latex Allergy (Verified 10/16/19 18:50) peanut Allergy (Verified 10/16/19 18:50) Home Medications: PNV, proair inhaler Past Medical History - General Information source: Patient Last Menstrual Period: 08/31/2019 - Social History Smoking Status: Former Smoker Chew tobacco use (# tins/day): No Frequency of alcohol use: None Drug Abuse: None Family History: Reviewed & Not Pertinent, CAD Patient has homicidal ideation: No Pulmonary Medical History: Reports: Hx Asthma, Hx Pneumonia GI Medical History: Reports: Hx Gastroesophageal Reflux Disease Psychiatric Medical History: Reports: Hx Depression Physical Exam - Vital signs Vitals: Temp Pulse Resp BP Pulse Ox 98.4 F 105 H 18 120/72 100 10/16/19 18:46 10/16/19 18:46 10/16/19 18:46 10/16/19 18:46 10/16/19 18:46 Course - Re-evaluation Re-evalutation: 10/16/19 21:01 Patient is noted to have vaginitis will start on Flagyl refer to [facility] for further evaluation with return instructions - Vital Signs Vital signs: Temp Pulse Resp BP Pulse Ox 98.4 F 105 H 18 120/72 100 10/16/19 18:46 10/16/19 18:46 10/16/19 18:46 10/16/19 18:46 10/16/19 18:46 - Laboratory Result Diagrams: 10/16/19 19:03 10/16/19 19:03 Laboratory results interpreted by me: 10/16/19 10/16/19 10/16/19 19:03 19:03 19:08 WBC 16.8 H MCH 26.6 L RDW 15.8 H Plt Count 538 H Absolute Neuts (auto) 12.1 H Absolute Eos (auto) 0.7 H BUN 6 L Beta HCG, Quant 1397.00 H Urine Protein 30 H Urine Blood SMALL H Urine Urobilinogen 2.0 H Ur Leukocyte Esterase TRACE H Discharge - Discharge Clinical Impression: Threatened miscarriage in early Vaginitis Qualifiers: Chronicity: acute Qualified Code(s): N76.0 - Acute vaginitis Qualifiers: Weeks of gestation: unspecified Qualified Code(s): Z34.90 - Encounter for supervision of normal , unspecified, unspecified trimester Condition: Stable Disposition: HOME, SELF-CARE Additional Instructions: 1. follow up with OB for repeat Beta-HCG blood test in 3-5 days 2. follow up with OB for further evaluation and treatment, call for appt. 3. return to the ED for any worsening/onset of abdominal pain, vomiting or vaginal bleeding where you are saturating > 1 pad per hour or if you develop unilateral pelvic pain Prescriptions: Metronidazole [Flagyl 500 mg Tablet] 500 mg PO BID #14 tablet Referrals: BERONICA MCDONALD MD [ACTIVE PROVISIONAL STAFF] - Follow up as needed
[2019-10-16 20:58] LABS: BACTERIA (WET MOUNT) 3+ BACTERIA SEEN; EPITHELIALS (WET MOUNT) 4+ EPITHELIALS SEEN; RBCS (WET MOUNT) 1+ RBCS SEEN; T.VAGINALIS (WET MOUNT) NO TRICHOMONAS SEEN; WBCS (WET MOUNT) 3+ WBCS SEEN; YEAST (WET MOUNT) NO YEAST SEEN
[2019-10-16] MEDS ORDERED: METRONIDAZOLE 500 MG TABLET PO ONE (21:01)
[2019-10-16 21:27] VITALS: BP 111/65
[2019-10-16 22:27] LABS: CHLAM PCR NOT DETECTED (NOT DETECT)
== END 2019-10-16 21:20 | disposition home or self-care (01) ==
LOC: ER 18:41
DX: O20.0 Threatened abortion (principal); O23.599 Infection of other part of genital tract in pregnancy, unspecified trimester; O26.891 Other specified pregnancy related conditions, first trimester; R10.9 Unspecified abdominal pain; Z3A.00 Weeks of gestation of pregnancy not specified; E66.9 Obesity, unspecified; Z88.8 Allergy status to other drugs, medicaments and biological substances; Z79.899 Other long term (current) drug therapy
CPT/HCPCS: 36415; 80053; 81001; 84702; 85025; 86900; 86901; 87210; 87491; 87591; 99284

== ENCOUNTER 2019-12-13 03:33 | Emergency (ER) | payer SELFPAY ==
[2019-12-13 04:16] LABS: APPEARANCE,URINE SLIGHTLY-CLOUDY; BILIRUBIN,URINE NEGATIVE (NEGATIVE); COLOR,URINE YELLOW; GLUCOSE, URINE NEGATIVE (NEGATIVE); KETONES,URINE NEGATIVE (NEGATIVE); LEUKOCYTE ESTERASE,URINE TRACE (NEGATIVE); NITRITE,URINE NEGATIVE (NEGATIVE); PROTEIN,URINE NEGATIVE (NEGATIVE); URINE SPECIFIC GRAVITY 1.024; UROBILINOGEN,URINE NEGATIVE mg/dL (<2.0)
[2019-12-13] MEDS ORDERED: METOCLOPRAMIDE HCL 10 MG TABLET PO ONE (05:17)
[2019-12-13] MEDS ORDERED: ACETAMINOPHEN 325 MG TABLET PO ONE (05:17)
--- NOTE | 2019-12-13 05:17 | ER Document Report ---
ED Medical Screen (RME) - General Chief Complaint: OB Problem (<20wks) Stated Complaint: 11 WKS PREG, ABDOMINAL PAIN, DISCHARGE Time Seen by Provider: 12/13/19 05:15 Notes: 19-year-old female reported to be 11 weeks gestation chief complaint of mid to lower abdominal pain that started this morning. She reports intermittent nausea, denies vomiting, denies dysuria, vaginal discharge, fever. She states she has started to have vaginal spotting this evening as well. TRAVEL OUTSIDE OF THE [place] IN LAST 30 DAYS: No - Related Data Allergies/Adverse Reactions: Anesthetics - Amide Type Allergy (Verified 11/05/19 20:34) latex Allergy (Verified 11/05/19 20:34) peanut Allergy (Verified 11/05/19 20:34) Past Medical History - Social History Chew tobacco use (# tins/day): No Frequency of alcohol use: None Drug Abuse: None Pulmonary Medical History: Reports: Hx Asthma, Hx Pneumonia GI Medical History: Reports: Hx Gastroesophageal Reflux Disease, Hx Endoscopy Psychiatric Medical History: Reports: Hx Depression Past Surgical History: Reports: Hx Adenoidectomy, Hx Myringotomy - None, Hx Nose Surgery - Sinus surgery - Immunizations Immunizations up to date: No Hx Diphtheria, Pertussis, Tetanus Vaccination: No Physical Exam - Vital signs Vitals: Temp 98.2 F 12/13/19 03:34 - Abdominal Tenderness: Tender - Generalized lower abdominal tenderness, nonspecific, no guarding Course - Vital Signs Vital signs: Temp Pulse Resp BP Pulse Ox 98.2 F 101 H 16 129/65 H 100 12/13/19 03:39 12/13/19 03:39 12/13/19 03:39 12/13/19 03:39 12/13/19 03:39 - Laboratory Laboratory results interpreted by me: 12/13/19 03:50 Urine Blood MODERATE H Ur Leukocyte Esterase TRACE H
[2019-12-13 05:41] LABS: ABSOLUTE BASOPHILS # (AUTO) 0.1 10^3/uL (0.0-0.2); ABSOLUTE EOSINOPHILS # (AUTO) 0.5 10^3/uL (0.0-0.6); ABSOLUTE LYMPHOCYTES (AUTO) 2.8 10^3/uL (0.5-4.7); ABSOLUTE MONOCYTES (AUTO) 1.2 10^3/uL (0.1-1.4); ABSOLUTE NEUT (AUTO) 11.7 10^3/uL (1.7-8.2); BASOPHILS % (AUTO) 0.5 % (0-2); EOSINOPHILS % (AUTO) 3.3 % (0-6); HEMATOCRIT 38.7 % (36.0-47.0); LYMPHOCYTES % (AUTO) 17.4 % (13-45); MEAN CORPUSCULAR HGB CONC 33.5 g/dL (32.0-36.0); MEAN CORPUSCULAR VOLUME 81 fl (80-97); MONOCYTES % (AUTO) 7.2 % (3-13); PLATELET COUNT 384 10^3/uL (150-450); RED CELL DISTRIBUTION WIDTH 14.9 % (11.5-14.0); SEGMENTED NEUTROPHILS % (AUTO) 71.6 % (42-78); TOTAL CELLS COUNTED % (AUTO) 100 %; WHITE BLOOD COUNT 16.3 10^3/uL (4.0-10.5)
--- NOTE | 2019-12-13 06:51 | RADIOLOGY REPORT (SQ) ---
Obstetric ultrasound: 12/13/2019 5:48 AM CDT HISTORY: 19-year-old female with lower abdominal pain, concern for vaginal bleeding. TECHNIQUE: Multiple grayscale and color Doppler images of the pelvis were obtained transabdominally. COMPARISON: None available for this . FINDINGS: A single intrauterine gestation is seen, which is variable in position. The uterus measures 14.0 x 6.2 x 11.0 cm. The right ovary is obscured by overlying bowel gas. The left ovary measures 3.0 x 1.8 x 3.0 cm. Arterial waveforms were obtained from the left ovary. The cervix measures at least 3.2 centers in length. The placenta is anterior in location, and free of internal os of the cervix. The estimated heart rate is approximately 153 bpm. The ESCOBAR is subjectively within normal limits. The following measurements were obtained: BPD: 2.3 cm, consistent with 13 weeks and 6 day(s). HC: 9.2 cm, consistent with 14 weeks and 1 day(s). AC: 7.2 cm, consistent with 13 weeks and 5 day(s). FL: 1.3 cm, consistent with 13 weeks and 5 day(s). The fetus measures at 13 weeks and 6 day(s) by AUA, consistent with an estimated due date of 06/13/20. IMPRESSION: A single, live intrauterine gestation is seen which is currently variable in position. The fetus measures at 13 weeks and 6 day(s) by AUA, consistent with an estimated due date of 06/13/20. This is different than the prior estimated due date of 06/06/2020. 2.Detailed anatomic assessment was not performed. Interval follow-up with an obstetric care provider is recommended.
--- NOTE | 2019-12-13 07:36 | ER Document Report ---
Entered by BARBARA PATEL SCRIBE 12/13/19 0646 Acting as scribe for:LARRY BLACKBURN MD ED GI/ - General Chief Complaint: OB Problem (<20wks) Stated Complaint: 11 WKS PREG, ABDOMINAL PAIN, DISCHARGE Time Seen by Provider: 12/13/19 05:15 Mode of Arrival: Ambulatory Information source: Patient Notes: This 19 year old female patient, , approximately x11 weeks presents to the ED today for evaluation of pink discharge/spotting that started yesterday evening. She reports bilateral lower quadrant pain and nausea without emesis. She states that she is taking OTC vitamins, but she has not established OB care yet. Denies fever or chills. TRAVEL OUTSIDE OF THE [place] IN LAST 30 DAYS: No - Related Data Allergies/Adverse Reactions: Anesthetics - Amide Type Allergy (Verified 11/05/19 20:34) latex Allergy (Verified 11/05/19 20:34) peanut Allergy (Verified 11/05/19 20:34) Past Medical History - General Information source: Patient - Social History Smoking Status: Never Smoker Cigarette use (# per day): No Chew tobacco use (# tins/day): No Smoking Education Provided: No Frequency of alcohol use: None Drug Abuse: None Lives with: Spouse/Significant other Family History: Reviewed & Not Pertinent, CAD Patient has suicidal ideation: No Patient has homicidal ideation: No Pulmonary Medical History: Reports: Hx Asthma, Hx Pneumonia GI Medical History: Reports: Hx Gastroesophageal Reflux Disease, Hx Endoscopy Skin Medical History: Reports Hx Eczema Psychiatric Medical History: Reports: Hx Anxiety, Hx Depression Past Surgical History: Reports: Hx Adenoidectomy, Hx Nose Surgery - Sinus surgery - Immunizations Immunizations up to date: No Hx Diphtheria, Pertussis, Tetanus Vaccination: No Review of Systems - Review of Systems Constitutional: See HPI. denies: Chills, Fever EENT: No symptoms reported Cardiovascular: No symptoms reported Respiratory: No symptoms reported Gastrointestinal: See HPI, Abdominal pain, Nausea. denies: Vomiting Genitourinary: No symptoms reported Female Genitourinary: See HPI, , Vaginal discharge, Vaginal bleeding Musculoskeletal: No symptoms reported Skin: No symptoms reported Hematologic/Lymphatic: No symptoms reported Neurological/Psychological: No symptoms reported -: Yes All other systems reviewed and negative Physical Exam - Vital signs Vitals: Temp 98.2 F 12/13/19 03:34 Interpretation: Normal - General General appearance: Appears well, Alert In distress: None - HEENT Head: Normocephalic, Atraumatic Eyes: Normal Extraocular movements intact: Yes Pupils: PERRL - Respiratory Respiratory status: No respiratory distress Chest status: Nontender Breath sounds: Normal Chest palpation: Normal - Cardiovascular Rhythm: Regular Heart sounds: Normal auscultation, S1 appreciated, S2 appreciated Murmur: No Friction rub: No Gallop: None auscultated - Abdominal Inspection: Obese Distension: No distension Bowel sounds: Normal Tenderness: Nontender - Abdomen soft. No: Guarding, Rebound Organomegaly: No organomegaly - Back Back: Normal, Nontender - Extremities General upper extremity: Normal inspection General lower extremity: Normal inspection. No: Edema - Neurological Neuro grossly intact: Yes Orientation: AAOx4 [place] Coma Scale Eye Opening: Spontaneous [place] Coma Scale Verbal: Oriented [place] Coma Scale Motor: Obeys Commands [place] Coma Scale Total: 15 - Psychological Associated symptoms: Normal affect, Normal mood - Skin Skin Temperature: Warm Skin Moisture: Dry Skin Color: Normal Course - Re-evaluation Re-evalutation: 12/13/19 07:24 Patient resting comfortably not showing any signs of distress at this time. 12/13/19 07:34 Chlamydia gonorrhea PCR on urine has been ordered. Patient will be discharged and not required to wait on the results of this test will give her a call once results are in. - Vital Signs Vital signs: Temp Pulse Resp BP Pulse Ox 98.2 F 101 H 16 129/65 H 100 12/13/19 03:39 12/13/19 03:39 12/13/19 03:39 12/13/19 03:39 12/13/19 03:39 12/13/19 07:25 Vital signs stable. Pulse 101. - Laboratory Result Diagrams: 12/13/19 05:25 Laboratory results interpreted by me: 12/13/19 12/13/19 12/13/19 03:50 05:25 05:25 WBC 16.3 H RDW 14.9 H Absolute Neuts (auto) 11.7 H Beta HCG, Quant 76423.00 H Urine Blood MODERATE H Ur Leukocyte Esterase TRACE H 12/13/19 07:25 Laboratory shows elevated white blood cell count of 16. Patient has chronic elevation of white blood cell counts and this is her usual range of sunroom white blood cells. Urinalysis shows trace leukocyte esterase moderate blood and the patient has a beta-hCG of 41,366. Patient is 13 weeks 6 days intrauterine not showing any signs of abnormality on ultrasound today. Most likely blood in urine is related to patient's as she is noted a pink-tinged discharge this morning. 12/13/19 07:28 Patient's blood type is be positive. Therefore patient does not require any RhoGam. - Diagnostic Test Radiology reviewed: Image reviewed, Reports reviewed Radiology results interpreted by me: 12/13/19 07:10 Obstetrics Ultrasound 12/13/19 05:15 IMPRESSION: A single, live intrauterine gestation is seen which is currently variable in position. The fetus measures at 13 weeks and 6 day(s) by AUA, consistent with an estimated due date of 06/13/20. This is different than the prior estimated due date of 06/06/2020. 2.Detailed anatomic assessment was not performed. Interval follow-up with an obstetric care provider is recommended. 12/13/19 07:26 Patient has a 13-week 16-day intrauterine live . Discharge - Discharge Clinical Impression: Second trimester , Threatened miscarriage Condition: Stable Disposition: HOME, SELF-CARE Instructions: Threatened Miscarriage ([facility]) Referrals: BERONICA MCDONALD MD [ACTIVE PROVISIONAL STAFF] - Follow up in 3-5 days I personally performed the services described in the documentation, reviewed and edited the documentation which was dictated to the scribe in my presence, and it accurately records my words and actions.
[2019-12-13 07:49] VITALS: BP 118/71
[2019-12-13 09:11] LABS: CHLAM PCR NOT DETECTED (NOT DETECT)
== END 2019-12-13 07:49 | disposition home or self-care (01) ==
LOC: ER 03:33
DX: O20.0 Threatened abortion (principal); O26.892 Other specified pregnancy related conditions, second trimester; R10.9 Unspecified abdominal pain; R11.0 Nausea; N89.8 Other specified noninflammatory disorders of vagina; O99.512 Diseases of the respiratory system complicating pregnancy, second trimester; J45.909 Unspecified asthma, uncomplicated; O99.112 Other diseases of the blood and blood-forming organs and certain disorders involving the immune mechanism complicating pregnancy, second trimester; D72.829 Elevated white blood cell count, unspecified; Z79.899 Other long term (current) drug therapy; Z3A.00 Weeks of gestation of pregnancy not specified; Z88.4 Allergy status to anesthetic agent; Z91.040 Latex allergy status; Z91.010 Allergy to peanuts
CPT/HCPCS: 36415; 76801; 81001; 84702; 85025; 86900; 86901; 87491; 87591; 93976; 99284

== ENCOUNTER 2020-01-09 20:17 | Emergency (ER) | payer MEDICAID ==
[2020-01-09] MEDS ORDERED: ACETAMINOPHEN 325 MG TABLET PO ONE (20:56)
--- NOTE | 2020-01-09 20:57 | ER Document Report ---
ED Medical Screen (RME) - General Stated Complaint: FALL,DIZZINESS,NO MOVEMENT/17 WEEKS Time Seen by Provider: 01/09/20 20:49 Notes: Patient is a G 2 P1 19-year-old female who presents the emergency department with no movement felt. Patient states that yesterday she tripped over some stairs forward and today she did not feel any movement. Patient states that her back hurts, but she states that she has chronic back pain. Denies any contraction feelings. Exam: Tender low back. I have greeted and performed a rapid initial assessment of this patient. A comprehensive ED assessment and evaluation of the patient, analysis of test results and completion of medical decision making process will be conducted by an additional ED providers. TRAVEL OUTSIDE OF THE [place] IN LAST 30 DAYS: No - Related Data Allergies/Adverse Reactions: Anesthetics - Amide Type - Select A [Anesthetics - Amide Type] Allergy (Verified 11/05/19 20:34) latex Allergy (Verified 11/05/19 20:34) peanut Allergy (Verified 11/05/19 20:34) Past Medical History Pulmonary Medical History: Reports: Hx Asthma, Hx Pneumonia GI Medical History: Reports: Hx Gastroesophageal Reflux Disease, Hx Endoscopy Skin Medical History: Reports Hx Eczema Psychiatric Medical History: Reports: Hx Anxiety, Hx Depression Past Surgical History: Reports: Hx Adenoidectomy, Hx Myringotomy - None, Hx Nose Surgery - Sinus surgery - Immunizations Immunizations up to date: No Hx Diphtheria, Pertussis, Tetanus Vaccination: No Physical Exam - Vital signs Vitals: Temp Pulse Resp BP Pulse Ox 98.4 F 103 H 20 119/64 98 01/09/20 20:24 01/09/20 20:24 01/09/20 20:24 01/09/20 20:24 01/09/20 20:24 Course - Vital Signs Vital signs: Temp Pulse Resp BP Pulse Ox 98.4 F 103 H 20 119/64 98 01/09/20 20:24 01/09/20 20:24 01/09/20 20:24 01/09/20 20:24 01/09/20 20:24
[2020-01-09 21:15] LABS: ABSOLUTE EOSINOPHILS # (AUTO) 0.6 10^3/uL (0.0-0.6); ABSOLUTE LYMPHOCYTES (AUTO) 2.6 10^3/uL (0.5-4.7); ABSOLUTE NEUT (AUTO) 10.3 10^3/uL (1.7-8.2); BASOPHILS % (AUTO) 0.2 % (0-2); EOSINOPHILS % (AUTO) 4.1 % (0-6); HEMATOCRIT 35.9 % (36.0-47.0); HEMOGLOBIN 12.1 g/dL (12.0-15.5); MEAN CORPUSCULAR HEMOGLOBIN 26.6 pg (27.0-33.4); MEAN CORPUSCULAR HGB CONC 33.9 g/dL (32.0-36.0); MEAN CORPUSCULAR VOLUME 79 fl (80-97); MONOCYTES % (AUTO) 7.1 % (3-13); PLATELET COUNT 372 10^3/uL (150-450); RED BLOOD COUNT 4.57 10^6/uL (3.72-5.28); RED CELL DISTRIBUTION WIDTH 14.8 % (11.5-14.0); SEGMENTED NEUTROPHILS % (AUTO) 70.6 % (42-78); TOTAL CELLS COUNTED % (AUTO) 100 %; WHITE BLOOD COUNT 14.6 10^3/uL (4.0-10.5)
--- NOTE | 2020-01-09 22:21 | ER Document Report ---
ED General - General Chief Complaint: Near Syncope Stated Complaint: FALL,DIZZINESS,NO MOVEMENT/17 WEEKS Time Seen by Provider: 01/09/20 20:49 TRAVEL OUTSIDE OF THE [place] IN LAST 30 DAYS: No - HPI Context: This is a 19-year-old female, , approximately 17 weeks who presents to the emergency department concerned about lack of movement today. Patient states that she was walking up a set of stairs and managed to trip on them and landed on her abdomen. Patient states she has not felt any movement since the accident. Patient states that she also has some low back pain but this is chronic. Patient denies any taylor of fluids, vaginal bleeding or sensation of contraction. Patient is B+ on review of prior medical records. Patient states her overall pain is a 2 out of 5 and states that the pain is worse with movement. Patient does not know of any alleviating symptoms of her discomfort. Patient states that sometimes when she stands up she feels dizzy. Patient states she mainly came in today to have her baby checked to "make sure everything was okay." Patient denies fever, chills, shortness of breath, chest pain, nausea, vomiting, loss of sense of taste or loss of sense of smell, history of Covid infection, known exposure to Covid positive patients or persons under investigation for COVID-19. Associated symptoms: Other - See HPI Exacerbated by: Other - See HPI Relieved by: Other - See HPI - Related Data Allergies/Adverse Reactions: Anesthetics - Amide Type - Select A [Anesthetics - Amide Type] Allergy (Verified 11/05/19 20:34) latex Allergy (Verified 11/05/19 20:34) peanut Allergy (Verified 11/05/19 20:34) Past Medical History - General Information source: Patient - Social History Smoking Status: Never Smoker Chew tobacco use (# tins/day): No Frequency of alcohol use: None Drug Abuse: None Family History: Reviewed & Not Pertinent, CAD Pulmonary Medical History: Reports: Hx Asthma, Hx Pneumonia GI Medical History: Reports: Hx Gastroesophageal Reflux Disease, Hx Endoscopy Skin Medical History: Reports Hx Eczema Psychiatric Medical History: Reports: Hx Anxiety, Hx Depression Past Surgical History: Reports: Hx Adenoidectomy, Hx Myringotomy - None, Hx Nose Surgery - Sinus surgery - Immunizations Immunizations up to date: No Hx Diphtheria, Pertussis, Tetanus Vaccination: No Review of Systems - Review of Systems Constitutional: No symptoms reported EENT: No symptoms reported Cardiovascular: Other - Dizziness with change in position Respiratory: No symptoms reported Gastrointestinal: Abdominal pain Genitourinary: No symptoms reported Female Genitourinary: No symptoms reported Musculoskeletal: Back pain Skin: No symptoms reported Hematologic/Lymphatic: No symptoms reported Neurological/Psychological: No symptoms reported -: Yes All other systems reviewed and negative Physical Exam - Vital signs Vitals: Temp Pulse Resp BP Pulse Ox 98.4 F 103 H 20 119/64 98 01/09/20 20:24 01/09/20 20:24 01/09/20 20:24 01/09/20 20:24 01/09/20 20:24 - Notes Notes: CONSTITUTIONAL [Vital signs reviewed, Patient appears comfortable, Alert and oriented X 3, Normal stature.] HEAD [Atraumatic, Normocephalic.] EYES [Eyes are normal to inspection, No discharge from eyes, Extraocular muscles intact, Sclera are normal, Conjunctiva are normal.] NECK [Normal ROM, No jugular venous distention, No meningeal signs, no carotid bruit.] RESPIRATORY CHEST [Chest is nontender, Breath sounds normal, No respiratory distress.] CARDIOVASCULAR [RRR, No murmurs, Normal S1 S2, No rub, No gallop.] ABDOMEN [Abdomen is nontender, No pulsatile masses, No other masses, Bowel sounds normal, No distension, No peritoneal signs, No hernias.] BACK [There is no CVA Tenderness, There is no tenderness to palpation, Normal inspection.] UPPER EXTREMITY [Inspection normal, No cyanosis, No clubbing, No edema, 2+ radial pulses.] LOWER EXTREMITY [Inspection normal, No cyanosis, No clubbing, No edema, No calf tenderness, 2+ femoral pulses.] NEURO [No focal motor deficits, No focal sensory deficits, Speech normal.] SKIN [Skin is warm, Skin is dry, Skin is normal color.] PSYCHIATRIC [Normal affect. ] Course - Re-evaluation Re-evalutation: 01/09/20 23:32 Patient's orthostatics were positive. Patient was given a bolus of normal saline prior to discharge. Patient also found to have a UTI. Patient was started on Macrobid here in the emergency department and given a prescription for a 7-day course of the antibiotic. The ultrasound reveals a live intrauterine approximately 17 weeks, 2 days in a breech position with placenta previa but no evidence of abruption. All findings of ED MSE discussed with patient. All questions were answered prior to discharge. Emergency signs and symptoms, reasons to return to the emergency department discussed with patient. - Vital Signs Vital signs: Temp Pulse Resp BP Pulse Ox 98.4 F 78 20 115/63 98 01/09/20 20:24 01/09/20 22:03 01/09/20 20:24 01/09/20 22:03 01/09/20 20:24 - Laboratory Result Diagrams: 01/09/20 21:07 Laboratory results interpreted by me: 01/09/20 01/09/20 01/09/20 21:07 21:07 22:20 WBC 14.6 H Hct 35.9 L MCV 79 L MCH 26.6 L RDW 14.8 H Absolute Neuts (auto) 10.3 H Beta HCG, Quant 88451.00 H Urine Protein 30 H Urine Blood SMALL H Urine Urobilinogen 2.0 H Ur Leukocyte Esterase MODERATE H - Diagnostic Test Radiology reviewed: Reports reviewed Discharge - Discharge Clinical Impression: Viable Qualifiers: Trimester: second trimester Qualified Code(s): Z34.92 - Encounter for supervision of normal , unspecified, second trimester UTI (urinary tract infection) Qualifiers: Urinary tract infection type: site unspecified Hematuria presence: with hematuria Qualified Code(s): N39.0 - Urinary tract infection, site not specified; R31.9 - Hematuria, unspecified Condition: Stable Disposition: HOME, SELF-CARE Instructions: Urinary Tract Infection ([facility]) Additional Instructions: Return to the Emergency Department without delay if any worse. HOME CARE INSTRUCTIONS & INFORMATION: Thank you for choosing us for your medical needs. We hope you're satisfied with the care you received. After you leave, you must properly care for your problem and, at the same time, observe its progress. Any condition can change. Some illnesses can change rapidly over hours or days. If your condition worsens, return to the Emergency Department or see your physician promptly. ABOUT YOUR X-RAYS AND EKG'S: If you had an EKG or X-rays taken, they have been read by the Emergency Physician. The X-rays and EKG's will also be read by a Radiologist or Patient Educator within 24 hours. If discrepancies are noted, you will be notified by telephone. Please be certain the ED has a correct telephone number & address where you can be reached. Also, realize that some fractures or abnormalities do not show up on initial X-rays. If your symptoms continue, see your physician. ABOUT YOUR LABORATORY TEST: If you had laboratory tests, the results have been reviewed by the Emergency Physician. Some test results (for example cultures) may not be available for several days. You will be contacted if any test result shows you need additional treatment. Please be certain the ED has a correct telephone number and address where you can be reached. ABOUT YOUR MEDICATIONS: You will receive instructions on how to take your medicine on the prescription label you receive. Additional information may be provided by the Pharmacy. If you have questions afterwards, call the ED for clarification or further instructions. Some prescribed medications may cause drowsiness. Do not perform tasks such as driving a car or operating machinery without consulting your Pharmacist. If you feel you need a refill of pain medication, your condition will need re-evaluation. Please do not call for a refill of any medication. ABOUT YOUR SIGNATURE: Signature of this document acknowledges to followin. Understanding that you received emergency treatment and that you may be released before al medical problems are known or treated. Please be certain the ED has a correct phone number & address where you can be reached. 2. Acknowledgement that you will arrange for follow-up care as recommended. 3. Authorization for the Emergency Physician to provide information to your follow-up Physician in order to maximize your care. AT ANY TIME, IF YOUR SYMPTOMS CHANGE SIGNIFICANTLY OR WORSEN OR YOU DEVELOP NEW SYMPTOMS, RETURN TO THE EMERGENCY DEPARTMENT IMMEDIATELY FOR RE-EVALUATION. OUR GOAL IS TO PROVIDE EXCELLENT MEDICAL CARE! WE HOPE THAT WE HAVE MET YOUR EXPECTATIONS DURING YOUR EMERGENCY DEPARTMENT VISIT AND THAT YOU FEEL YOU HAVE RECEIVED EXCELLENT CARE! Prescriptions: Nitrofurantoin Monohyd/M-Cryst [Macrobid 100 mg Capsule] 100 mg PO BID 7 Days #14 cap Referrals: JESSICA HURTADO MD [ACTIVE STAFF] - Follow up as needed (Call 01/11/2020 to schedule follow-up appointment)
[2020-01-09] MEDS ORDERED: NORMAL SALINE 1000 ML 1,000 ML IV ONE (22:29)
--- NOTE | 2020-01-09 22:30 | RADIOLOGY REPORT (SQ) ---
EXAM DESCRIPTION: OB ultrasound. CLINICAL HISTORY: 19 years Female; fall; no movement felt TECHNIQUE: Transabdominal obstetrical ultrasound was performed. COMPARISON: None. FINDINGS: Number of fetuses: Single position: Breech Amniotic fluid: Single pocket measurement is 3.3 x 4.0 cm Cervix: The cervix is closed. It measures 5.1 cm in length. Placenta: Anterior. The lower margin of the placenta completely covers the internal cervical os. This is consistent with a complete placenta previa. Grade 0. No abruption. HR: 155 bpm Biometry: BPD: 3.63 cm, 17 weeks one day, 24th percentile HC: 14.19 cm, 17 weeks three days, 29th percentile AC: 11.77 cm, 17 weeks four days, 41st percentile FL: 2.26 cm, 16 weeks five days, 14th percentile EFW: 185 g HC/AC: 1.21 Composite Gestational Age: 17 weeks two days. 06/16/2020. This correlates with the clinical age. IMPRESSION: 1. Single living intrauterine with gestational age of 17 weeks two days and estimated delivery date of 06/16/2020. 2. Anterior placenta with complete placenta previa.
[2020-01-09 23:00] LABS: APPEARANCE,URINE SLIGHTLY-CLOUDY; BILIRUBIN,URINE NEGATIVE (NEGATIVE); CALCIUM OXALATE CRYSTALS,URINE MODERATE /HPF; COLOR,URINE YELLOW; GLUCOSE, URINE NEGATIVE (NEGATIVE); KETONES,URINE NEGATIVE (NEGATIVE); LEUKOCYTE ESTERASE,URINE MODERATE (NEGATIVE); NITRITE,URINE NEGATIVE (NEGATIVE); PROTEIN,URINE 30 mg/dL (NEGATIVE); URINE SPECIFIC GRAVITY 1.027
[2020-01-09] MEDS ORDERED: NITROFURANTOIN MONOHYD/M-CRYST 100 MG CAPSULE PO ONE (23:26)
[2020-01-10 00:16] VITALS: BP 129/74
== END 2020-01-10 00:16 | disposition home or self-care (01) ==
LOC: ER 20:17
DX: O23.42 Unspecified infection of urinary tract in pregnancy, second trimester (principal); R31.9 Hematuria, unspecified; O36.8120 Decreased fetal movements, second trimester, not applicable or unspecified; R55 Syncope and collapse; Z3A.17 17 weeks gestation of pregnancy
CPT/HCPCS: 99284; 96360; 36415; 84702; 85025; 81001; 76815; J7030; J8499

== ENCOUNTER 2020-01-26 19:32 | Emergency (ER) | payer SELFPAY ==
--- NOTE | 2020-01-26 20:47 | ER Document Report ---
ED Medical Screen (RME) - General Stated Complaint: FALL/FAINTING SPELLS/20WKS PREG Time Seen by Provider: 01/26/20 20:36 TRAVEL OUTSIDE OF THE [place] IN LAST 30 DAYS: No - HPI Notes: 01/26/20 20:44 19-year-old female G2, P1 approximately 20 weeks presents to the emergency room today for having a fainting spell that happened around 630 this evening. Patient reports prior to fainting she was feeling lightheaded. Meg loera states that she did eat dinner tonight, states she had a box of chicken, she went upstairs to put her son to bed, and as she was putting him to bed she fainted. She states that she does not think that she hit her head. She did fall on her left byrd. She is able to bear full weight. Is not tried any [id number] medications. Reports pain is 1 out of 5, throbbing achy. 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 She does take vitamins daily as well as taking Benadryl because of her allergies. Patient states she feels like she is become more forgetful. Has not followed up with an [employer] yet because she was just recently and she is waiting to get health insurance from her new . Denies any vaginal bleeding vaginal discharge. Denies any fevers or chills, chest pain or shortness of breath. - Related Data Allergies/Adverse Reactions: Anesthetics - Amide Type - Select A [Anesthetics - Amide Type] Allergy (Verified 11/05/19 20:34) latex Allergy (Verified 11/05/19 20:34) peanut Allergy (Verified 11/05/19 20:34) Past Medical History Pulmonary Medical History: Reports: Hx Asthma, Hx Pneumonia GI Medical History: Reports: Hx Gastroesophageal Reflux Disease, Hx Endoscopy Skin Medical History: Reports Hx Eczema Psychiatric Medical History: Reports: Hx Anxiety, Hx Depression Past Surgical History: Reports: Hx Adenoidectomy, Hx Myringotomy - None, Hx Nose Surgery - Sinus surgery - Immunizations Immunizations up to date: No Hx Diphtheria, Pertussis, Tetanus Vaccination: No Physical Exam - Vital signs Vitals: Temp Pulse Resp BP Pulse Ox 98.6 F 113 H 18 125/81 98 01/26/20 19:57 01/26/20 19:57 01/26/20 19:57 01/26/20 19:57 01/26/20 19:57 Course - Vital Signs Vital signs: Temp Pulse Resp BP Pulse Ox 98.6 F 113 H 18 125/81 98 01/26/20 19:57 01/26/20 19:57 01/26/20 19:57 01/26/20 19:57 01/26/20 19:57
[2020-01-26] MEDS ORDERED: ACETAMINOPHEN 325 MG TABLET PO ONE (21:17)
[2020-01-26 21:54] LABS: ABSOLUTE BASOPHILS # (AUTO) 0.1 10^3/uL (0.0-0.2); ABSOLUTE EOSINOPHILS # (AUTO) 0.5 10^3/uL (0.0-0.6); ABSOLUTE LYMPHOCYTES (AUTO) 2.7 10^3/uL (0.5-4.7); ABSOLUTE MONOCYTES (AUTO) 1.1 10^3/uL (0.1-1.4); ABSOLUTE NEUT (AUTO) 11.7 10^3/uL (1.7-8.2); BASOPHILS % (AUTO) 0.4 % (0-2); HEMATOCRIT 36.7 % (36.0-47.0); HEMOGLOBIN 12.4 g/dL (12.0-15.5); LYMPHOCYTES % (AUTO) 17.1 % (13-45); MEAN CORPUSCULAR HEMOGLOBIN 26.5 pg (27.0-33.4); MEAN CORPUSCULAR HGB CONC 33.7 g/dL (32.0-36.0); MEAN CORPUSCULAR VOLUME 79 fl (80-97); PLATELET COUNT 430 10^3/uL (150-450); RED BLOOD COUNT 4.67 10^6/uL (3.72-5.28); RED CELL DISTRIBUTION WIDTH 15.1 % (11.5-14.0); SEGMENTED NEUTROPHILS % (AUTO) 72.5 % (42-78); TOTAL CELLS COUNTED % (AUTO) 100 %; WHITE BLOOD COUNT 16.1 10^3/uL (4.0-10.5)
--- NOTE | 2020-01-26 22:02 | RADIOLOGY REPORT (SQ) ---
Ultrasound OB follow-up on 01/26/2020 at 9:02 PM CLINICAL INDICATION: Fainted two hours ago, patient has not felt baby move COMPARISON: 01/09/2020 FINDINGS: Multiple sonographic images are obtained throughout the pelvis by transabdominal approach only, both transverse and sagittal images are obtained. Cervical length measures approximately 3.2 cm and the cervix is closed. Placenta previa is again noted with the placenta being anterior and covering the internal cervical os. Positive cardiac activity is noted with a heart rate 145 bpm. No evidence of placental abruption is noted. Adequate amniotic fluid is noted. Maximum vertical pocket measures 5 cm. Estimated gestational age by measurements is an approximately 19 week six day gestation. Estimated weight is 324 g +/- 48 g. Maternal adnexa were not imaged. No gross abnormality is noted on limited imaging. IMPRESSION: 1. Single living approximately 19 week six day intrauterine fetus. 2. Placenta previa again noted.
[2020-01-26 22:11] LABS: ALBUMIN 3.7 g/dL (3.5-5.0); ALKALINE PHOSPHATASE 62 U/L (38-126); ANION GAP 7 (5-19); ASPARTATE AMINO TRANSFERASE 16 U/L (14-36); BILIRUBIN,DIRECT 0.1 mg/dL (0.0-0.4); BILIRUBIN,TOTAL 0.2 mg/dL (0.2-1.3); BLOOD UREA NITROGEN 5 mg/dL (7-20); CALCIUM 9.7 mg/dL (8.4-10.2); CARBON DIOXIDE 23 mmol/L (22-30); CHLORIDE 105 mmol/L (98-107); GLUCOSE 89 mg/dL (75-110); POTASSIUM 4.3 mmol/L (3.6-5.0); TOTAL PROTEIN 6.6 g/dL (6.3-8.2)
[2020-01-26 22:18] LABS: APPEARANCE,URINE SLIGHTLY-CLOUDY; BILIRUBIN,URINE NEGATIVE (NEGATIVE); COLOR,URINE AMBER; GLUCOSE, URINE NEGATIVE (NEGATIVE); KETONES,URINE NEGATIVE (NEGATIVE); LEUKOCYTE ESTERASE,URINE TRACE (NEGATIVE); NITRITE,URINE NEGATIVE (NEGATIVE); PROTEIN,URINE 30 mg/dL (NEGATIVE); URINE SPECIFIC GRAVITY 1.029
--- NOTE | 2020-01-27 00:03 | ER Document Report ---
ED General - General Chief Complaint: Syncope Stated Complaint: FALL/FAINTING SPELLS/20WKS PREG Time Seen by Provider: 01/26/20 20:36 Primary Care Provider: JESSICA HURTADO MD [ACTIVE STAFF] - Follow up as needed TRAVEL OUTSIDE OF THE [place] IN LAST 30 DAYS: No - HPI Notes: Patient is a 19 y/o female with a hx of an autoimmune disorder who is 20 weeks and presents s/p syncopal episode. Patient reports feeling lightheaded her entire but states it worsened in the past week. She states this evening she was walking up the stairs when she felt lightheaded and unbalanced and syncopized. She reports landing on her left leg but denies hitting her head. She states she must have lost consciousness for about 30 seconds or so. She reports overexertion exacerbates her symptoms. She endorses palpitations as well as nausea and vomiting but this has been constant throughout her . She denies fever, chest pain, shortness of breath, abdominal pain, dysuria and vaginal bleeding. Patient has not been seen by OB yet for this as she recently got [place] - Related Data Allergies/Adverse Reactions: Anesthetics - Amide Type - Select A [Anesthetics - Amide Type] Allergy (Verified 01/26/20 20:50) latex Allergy (Verified 01/26/20 20:50) peanut Allergy (Verified 01/26/20 20:50) Home Medications: PRE-NATALS. BENEDRYL Past Medical History - General Information source: Patient - Social History Smoking Status: Never Smoker Frequency of alcohol use: None Drug Abuse: None Family History: Reviewed & Not Pertinent, CAD Pulmonary Medical History: Reports: Hx Asthma, Hx Pneumonia GI Medical History: Reports: Hx Gastroesophageal Reflux Disease, Hx Endoscopy Skin Medical History: Reports Hx Eczema Psychiatric Medical History: Reports: Hx Anxiety, Hx Depression Past Surgical History: Reports: Hx Adenoidectomy, Hx Myringotomy - None, Hx Nose Surgery - Sinus surgery - Immunizations Immunizations up to date: No Hx Diphtheria, Pertussis, Tetanus Vaccination: No Review of Systems - Review of Systems Constitutional: No symptoms reported EENT: No symptoms reported Cardiovascular: See HPI Respiratory: No symptoms reported Gastrointestinal: See HPI Genitourinary: No symptoms reported Female Genitourinary: No symptoms reported Musculoskeletal: No symptoms reported Skin: No symptoms reported Hematologic/Lymphatic: No symptoms reported Neurological/Psychological: See HPI Physical Exam - Vital signs Vitals: Temp Pulse Resp BP Pulse Ox 98.6 F 113 H 18 125/81 98 01/26/20 19:57 01/26/20 19:57 01/26/20 19:57 01/26/20 19:57 01/26/20 19:57 - Notes Notes: PHYSICAL EXAMINATION: VITALS: Vitals reviewed - tachycardia. GENERAL: Well-appearing, obese female and in no acute distress. HEAD: Atraumatic, normocephalic. EYES: Pupils equal, round, and reactive to light, extraocular movements intact, sclera anicteric, conjunctiva are normal. ENT: Nares patent. Moist mucous membranes. Oropharynx clear without exudates. NECK: Normal range of motion, supple without lymphadenopathy. LUNGS: Breath sounds clear to auscultation bilaterally and equal. No wheezes, rales, or rhonchi. HEART: Regular, rate, and rhythm without murmurs. ABDOMEN: Soft, nontender, normoactive bowel sounds. No guarding, no rebound. No masses appreciated. EXTREMITIES: Normal range of motion, no pitting or edema. No cyanosis. NEUROLOGICAL: No focal neurological deficits. Moves all extremities spontaneo usly and on command. PSYCH: Normal mood, normal affect. SKIN: Warm, Dry, normal turgor, no rashes or lesions noted. Course - Re-evaluation Re-evalutation: Patient is a 19 y/o female who presents with syncopal episode that occurred just prior to arrival. Patient is tachycardic with a HR of 113. Vital signs are otherwise unremarkable and within normal limits. Physical exam is normal with no concerning findings. EKG shows normal sinus rhythm with no ST segment changes. WBC is elevated at 16.1. CMP is unremarkable and within normal limits. Beta HCG + with a quant of 23,241. UA shows elevated protein of 30, specific gravity of 1.029 which is consistent with dehydration. UA also shows moderate blood, trace leukocyte esterase, WBC 8, and trace bacteria which is consistent with asymptomatic bacteriuria. Urine culture will be sent and patient will be treated with antibiotics. OB US shows single, live intrauterine fetus measuring 19 weeks and 6 days. Placenta previa again noted. 01/27/20 00:[address] Luciano and Dr. Albright concerning this patient. They recommended ordering a troponin and pro-BNP for further evaluation of her syncope. 01/27/20 00:47 The patient has chosen to leave the facility against medical advice. The relevant issues have been reviewed and discussed with the patient and family at the bedside. At the time of this assessment there is no indication for involuntary commitment. The patient is alert, oriented, and able to express clearly their reasoning for not wanting to remain in the emergency department for further treatment. The patient is not clinically psychotic, intoxicated, and denies and suicidal ideation. Differential or suspected diagnoses based on medical screening exam: cardiomyopathy, dehydration, placenta previa, pulmonary embolism, asyptomatic bacteriuria The patient is aware of the concerning diagnoses and acknowledges understanding of the reasons for the following recommendations: follow up with [facility] as soon possible. Take keflex as prescribed for asymptomatic bacteriuria. Return if you begin to experience chest pain, shortness of breath, vaginal bleeding, repeat syncopal episode. The following recommendations/services were offered and refused: troponin, pro- BNP, OB consult The following risks were explained: , permanent disability, loss of function Clinical impression: Patient is competent to make decisions regarding the m edical that is being offered. - Vital Signs Vital signs: Temp Pulse Resp BP Pulse Ox 97.6 F 82 16 129/74 H 100 01/27/20 00:35 01/27/20 00:35 01/27/20 00:35 01/27/20 00:35 01/27/20 00:35 - Laboratory Result Diagrams: 01/26/20 21:44 01/26/20 21:44 Laboratory results interpreted by me: 01/26/20 01/26/20 01/26/20 21:44 21:44 21:52 WBC 16.1 H MCV 79 L MCH 26.5 L RDW 15.1 H Absolute Neuts (auto) 11.7 H Sodium 135.4 L BUN 5 L Creatinine 0.50 L Beta HCG, Quant 53267.00 H Urine Protein 30 H Urine Blood MODERATE H Urine Urobilinogen 2.0 H Ur Leukocyte Esterase TRACE H - EKG Interpretation by Me Additional EKG results interpreted by me: Sinus rhythm with a rate of 94. QTc 416. Normal axis. No T wave inversions or ST segment changes in consecutive leads. Discharge - Discharge Clinical Impression: Syncope and collapse, Palpitation, Asymptomatic bacteriuria during Qualifiers: Weeks of gestation: 20 weeks Qualified Code(s): Z3A.20 - 20 weeks gestation of Placenta previa Qualifiers: Trimester: second trimester Qualified Code(s): O44.02 - Complete placenta previa NOS or without hemorrhage, second trimester Condition: Stable Disposition: AGAINST MEDICAL ADVICE Additional Instructions: Follow up with [facility] LE[employer]ER as soon as possible. Please return if you become short of breath, have chest pain, fever, persistent vomiting, or vaginal bleeding. Fainting Your evaluation has resulted in a diagnosis of a fainting spell (syncope). Fainting results when the blood pressure falls suddenly due to emotional distres s, pain, dehydration, bleeding, or medication effects. Fainting is usually NOT due to a health problem in younger people. Older persons often faint due to a medical condition. Your exam has revealed no signs of a serious problem as a cause for your fainting. Usually, no further tests are required. However, if further workup has been recommended, it's important that you follow up as instructed. Should you feel lightheaded or "about to faint," you should sit or lie down as quickly as possible. The episode will usually pass. Additional faints or near-faints will require further evaluation to determine if there's a treatable cause. Call the doctor at once if you develop shortness of breath, constant faintness, severe weakness, chest pain, black or tarry stool, or any other new or unusual symptoms. Prescriptions: Cephalexin [Cephalexin 500 MG Tablet] 500 mg PO QID 7 Days #28 tablet Referrals: JESSICA HURTADO MD [ACTIVE STAFF] - Follow up as needed
[2020-01-27 00:35] VITALS: BP 129/74
[2020-01-27 00:59] LABS: NT PRO BNP 56 pg/mL (<125)
[2020-01-27 01:02] LABS: TROPONIN I < 0.012 ng/mL
--- NOTE | 2020-01-27 18:55 | EKG REPORT ---
SEVERITY:- NORMAL ECG - SINUS RHYTHM : Confirmed by: Jerry Rodríguez MD 27-Jan-2020 18:54:08
== END 2020-01-27 00:52 | disposition left against medical advice (07) ==
LOC: ER 19:32
DX: O26.892 Other specified pregnancy related conditions, second trimester (principal); R55 Syncope and collapse; R42 Dizziness and giddiness; R82.71 Bacteriuria; R31.9 Hematuria, unspecified; R00.2 Palpitations; R00.0 Tachycardia, unspecified; O44.02 Complete placenta previa NOS or without hemorrhage, second trimester; O21.2 Late vomiting of pregnancy; D72.829 Elevated white blood cell count, unspecified; O99.112 Other diseases of the blood and blood-forming organs and certain disorders involving the immune mechanism complicating pregnancy, second trimester; O99.512 Diseases of the respiratory system complicating pregnancy, second trimester; J45.909 Unspecified asthma, uncomplicated; Z79.899 Other long term (current) drug therapy; Z88.4 Allergy status to anesthetic agent; Z91.040 Latex allergy status; Z91.010 Allergy to peanuts; Z3A.20 20 weeks gestation of pregnancy; Z53.20 Procedure and treatment not carried out because of patient's decision for unspecified reasons
CPT/HCPCS: 36415; 76805; 80053; 81001; 83880; 84484; 84702; 85025; 93005; 93010; 93976; 99285

== ENCOUNTER 2020-02-01 15:17 | Outpatient (CLI) | payer SELFPAY ==
[2020-02-01 16:22] LABS: APPEARANCE,URINE CLOUDY; BILIRUBIN,URINE NEGATIVE (NEGATIVE); COLOR,URINE YELLOW; GLUCOSE, URINE NEGATIVE (NEGATIVE); KETONES,URINE NEGATIVE (NEGATIVE); LEUKOCYTE ESTERASE,URINE LARGE (NEGATIVE); NITRITE,URINE NEGATIVE (NEGATIVE); PROTEIN,URINE 30 mg/dL (NEGATIVE); URINE SPECIFIC GRAVITY 1.019
[2020-02-01 16:29] LABS: URINE AMPHETAMINES SCREEN NEGATIVE; URINE BARBITURATES SCREEN NEGATIVE; URINE BENZODIAZEPINES SCREEN NEGATIVE; URINE COCAINE SCREEN NEGATIVE; URINE MARIJUANA (THC) SCREEN NEGATIVE; URINE METHADONE SCREEN NEGATIVE; URINE PHENCYCLIDINE SCREEN NEGATIVE
== END 2020-02-01 16:49 | disposition home or self-care (01) ==
LOC: LC 15:17
PROVIDERS: ATTEND Obstetrics & Gynecology
DX: O44.12 Complete placenta previa with hemorrhage, second trimester (principal); Z3A.21 21 weeks gestation of pregnancy; Z88.4 Allergy status to anesthetic agent; Z02.83 Encounter for blood-alcohol and blood-drug test
CPT/HCPCS: 80307; 81001